=== PATIENT | female | born 1990 | race Caucasian/White ===

== ENCOUNTER → 2017-12-27 17:06 | Outpatient (CLI) | payer OTHER, SELFPAY ==
[2017-12-27 18:53] LABS: Chlamydia Trachomatis by PCR Negative (Negative); Neisserai gonorrhoeae by PCR Negative (Negative); Probe Check PASS; Sample Adequacy Control PASS; Specimen Processing Control PASS
== END ==
PROVIDERS: Family Provider Family Medicine; PCP Family Medicine; Visit Provider Obstetrics & Gynecology
DX: Z34.80 Encounter for supervision of other normal pregnancy, unspecified trimester (principal)
CPT/HCPCS: 87086; 87491; 87591

== ENCOUNTER → 2018-01-07 09:27 | Outpatient (CLI) | payer OTHER, SELFPAY ==
[2018-01-07 10:26] LABS: Absolute Lymphocyte Count 3.05 X10^3/ul (0.83-4.51); Absolute Neutrophil Count 6.3 X10^3/uL (2.0-7.7); Basophil# 0.03 X10^3/uL; Basophil% 0.3 % (0-1); Eosinophil# 0.23 X10^3/uL; Eosinophils% 2.3 % (0-5); Hematocrit 40.9 % (37-47); Hemoglobin 13.5 g/dl (12.0-15.0); Lymphocyte # 3.05 X10^3/ul (4.0); Mean Corpuscular Hgb 28.5 pg (27.0-32.0); Mean Corpuscular Volume 86.3 fL (81-99); Mean Platelet Vol. 10.1 fl (6.2-12.0); Monocyte# 0.48 X10^3/uL; Monocyte% 4.7 % (0-10); Neutrophil # 6.33 X10^3/uL (2.7-7.7); Neutrophil % 62.4 % (47-70); Platelet Count 319 K/mm3 (150-450); RBC Distribution Width CV 13.3 % (11.6-14.6); RBC Distribution Width SD 41.8 fl (35.1-43.9); Red Blood Count 4.74 M/mm3 (4.2-5.4); White Blood Count 10.2 K/mm3 (4.4-11.0)
[2018-01-07 10:27] LABS: POSITIVE COUNT NO; POSITIVE DIFFERENTIAL NO; POSITIVE MORPHOLOGY NO
[2018-01-07 10:51] LABS: Glucose Challenge Gest 1H 50g 88 mg/dL (70-140)
[2018-01-08 09:38] LABS: HIV - WCH Non-Reactive (Nonreactive); Rubella IgG 35.9 IU/mL
[2018-01-08 14:35] LABS: HEPATITIS B SURFACE AG Negative (Negative)
[2018-01-10 03:14] LABS: Rapid Plasmin Reagin (RPR) NONREACTIVE (NONREACTIVE)
== END ==
PROVIDERS: Family Provider Family Medicine; PCP Family Medicine; Visit Provider Obstetrics & Gynecology
DX: Z34.80 Encounter for supervision of other normal pregnancy, unspecified trimester (principal)
CPT/HCPCS: 82950; 85025; 86592; 86703; 86762; 86850; 86900; 87340

== ENCOUNTER → 2018-01-27 17:35 | Outpatient (CLI) | payer OTHER, SELFPAY ==
[2018-01-27 18:03] LABS: Protein, Urine (Random) < 6.0 mg/dL (<11.9)
== END ==
PROVIDERS: Family Provider Family Medicine; Visit Provider Obstetrics & Gynecology
DX: R80.9 Proteinuria, unspecified (principal)
CPT/HCPCS: 82570; 84156

== ENCOUNTER → 2018-03-18 08:00 | Outpatient (CLI) | payer OTHER, SELFPAY ==
--- NOTE | 2018-03-18 08:00 | DT_ITS ---
This patient was seen during an EMR downtime March 17, 2018 - March 24, 2018. This patient may have a combination of paper and electronic documentation or all paper documentation. All documentation is viewable within the e-chart portion of [facility] for each patient visit.
--- NOTE | 2018-03-18 08:30 | US_ITS ---
STUDY: SECOND AND THIRD TRIMESTER OBSTETRICAL ULTRASOUND REASON FOR EXAM: Female, 28 years old. Anatomy. LMP: November 02, 2017. TECHNIQUE: Transabdominal PRIOR ULTRASOUND: None. FINDINGS: There is a single intrauterine fetus. The fetus is in a breech presentation. There is demonstrated cardiac activity with a heart rate of 158 bpm. There is a normal amniotic fluid volume. The largest amniotic fluid pocket measures 4.9 cm. The placenta is anterior in location and is not low lying. There are Grade 1 placental changes. There is a 2 x 1.1 cm placental jack. The cervix measures 6.38 cm in length. The adnexal regions are not visualized. BIOMETRY: BPD: 4.45 cm: 19 weeks, 4 days HC: 16.67 cm: 19 weeks, 3 days AC: 13.9 cm: 19 weeks, 3 days FL: 3 cm: 19 weeks, 2 days CI: FL/BPD: 67 FL/HC: FL/AC: 22 HC/AC: 1.20 age by current US: 19 weeks, 3 days. LISE by current US: August 09, 2018. Estimated weight: 285 grams, +/- 42 grams, 38 %. Age by LMP: 19 weeks, 3 days. LISE by LMP: August 09, 2018. ANATOMY: Gender: Female Cranium: Normal lateral ventricles. Normal choroid plexus. Normal cerebellum. Normal cisterna magna. Normal face, nose and lips. Chest: Normal 4-chamber heart. Abdomen/Pelvis: Normal diaphragm. Normal stomach. Normal abdominal wall. Normal cord insertion. Normal 3 vessel cord. Normal kidneys. Normal bladder. Spine: Normal cervical spine. Normal thoracic spine. Normal lumbar spine. Normal sacrum. Extremities: Normal bilateral upper extremities. Normal bilateral lower extremities. US/OB Anatomy Scan IMPRESSION: 1. Live single intrauterine at 19 weeks, 3 days. LISE is August 09, 2018. 2. EFW of 285 g. 3. Normal amniotic fluid. 4. Anterior grade 1 placenta. 5. Breech presentation. 6. No evidence of anatomic abnormality. Electronically Signed: Abelino Barrios DO at 15:39 EDT Tel [phone], Service support ,
== END ==
PROVIDERS: Family Provider Family Medicine; PCP Family Medicine; Visit Provider Obstetrics & Gynecology
DX: Z34.91 Encounter for supervision of normal pregnancy, unspecified, first trimester (principal); Z3A.12 12 weeks gestation of pregnancy
CPT/HCPCS: 76805

== ENCOUNTER → 2018-04-10 13:38 | Outpatient (CLI) | payer OTHER, SELFPAY ==
[2018-04-10 14:08] LABS: Protein, Urine (Random) < 6.0 mg/dL (<11.9)
== END ==
PROVIDERS: Family Provider Family Medicine; PCP Family Medicine; Visit Provider Nurse Practitioner Women's Health
DX: O16.2 Unspecified maternal hypertension, second trimester (principal); R10.9 Unspecified abdominal pain; Z3A.00 Weeks of gestation of pregnancy not specified
CPT/HCPCS: 82570; 84156; 87086

== ENCOUNTER → 2018-05-13 10:09 | Outpatient (CLI) | payer OTHER, SELFPAY ==
[2018-05-13 11:24] LABS: Absolute Lymphocyte Count 2.15 X10^3/ul (0.83-4.51); Absolute Neutrophil Count 8.8 X10^3/uL (2.0-7.7); Basophil# 0.03 X10^3/uL; Basophil% 0.3 % (0-1); Eosinophil# 0.23 X10^3/uL; Eosinophils% 1.9 % (0-5); Hematocrit 35.9 % (37-47); Hemoglobin 11.8 g/dl (12.0-15.0); Lymphocyte # 2.15 X10^3/ul (4.0); Lymphocyte % 18.1 % (19-41); Mean Corp Hgb Conc 32.9 g/gl (32-36); Mean Corpuscular Hgb 28.7 pg (27.0-32.0); Mean Corpuscular Volume 87.3 fL (81-99); Mean Platelet Vol. 10.4 fl (6.2-12.0); Monocyte# 0.63 X10^3/uL; Monocyte% 5.3 % (0-10); Neutrophil # 8.76 X10^3/uL (2.7-7.7); Platelet Count 299 K/mm3 (150-450); RBC Distribution Width CV 13.5 % (11.6-14.6); Red Blood Count 4.11 M/mm3 (4.2-5.4); White Blood Count 11.9 K/mm3 (4.4-11.0)
[2018-05-13 11:26] LABS: POSITIVE COUNT NO; POSITIVE DIFFERENTIAL NO; POSITIVE MORPHOLOGY NO
[2018-05-13 11:51] LABS: Glucose Challenge Gest 1H 50g 121 mg/dL (70-140)
== END ==
PROVIDERS: Family Provider Family Medicine; PCP Family Medicine; Visit Provider Obstetrics & Gynecology
DX: Z34.90 Encounter for supervision of normal pregnancy, unspecified, unspecified trimester (principal)
CPT/HCPCS: 36415; 82950; 85025

== ENCOUNTER → 2018-06-13 13:28 | Outpatient (CLI) | payer OTHER, SELFPAY | PROVIDERS: Family Provider Family Medicine; PCP Family Medicine; Visit Provider Obstetrics & Gynecology | DX: Z34.90 Encounter for supervision of normal pregnancy, unspecified, unspecified trimester (principal) | CPT/HCPCS: 76816 ==

== ENCOUNTER → 2018-07-07 10:29 | Outpatient (CLI) | payer OTHER, SELFPAY ==
[2018-07-07 12:33] LABS: Absolute Neutrophil Count 7.9 X10^3/uL (2.0-7.7); Basophil# 0.02 X10^3/uL; Basophil% 0.2 % (0-1); Eosinophil# 0.27 X10^3/uL; Eosinophils% 2.4 % (0-5); Hematocrit 33.3 % (37-47); Hemoglobin 10.9 g/dl (12.0-15.0); Lymphocyte % 21.8 % (19-41); Mean Corp Hgb Conc 32.7 g/gl (32-36); Mean Corpuscular Hgb 28.2 pg (27.0-32.0); Mean Platelet Vol. 10.3 fl (6.2-12.0); Monocyte# 0.71 X10^3/uL; Monocyte% 6.2 % (0-10); Neutrophil # 7.93 X10^3/uL (2.7-7.7); Platelet Count 281 K/mm3 (150-450); RBC Distribution Width CV 13.5 % (11.6-14.6); RBC Distribution Width SD 42.5 fl (35.1-43.9); Red Blood Count 3.87 M/mm3 (4.2-5.4); White Blood Count 11.5 K/mm3 (4.4-11.0)
[2018-07-07 12:35] LABS: POSITIVE COUNT NO; POSITIVE DIFFERENTIAL NO; POSITIVE MORPHOLOGY NO
[2018-07-07 12:48] LABS: ALB/GLOB Ratio 0.7 RATIO (0.9-2.4); AST(SGOT) 18 U/L (15-37); Alanine Aminotransfer ALT/SGPT 24 U/L (13-56); Albumin, Serum 2.9 g/dL (3.2-5.0); Alkaline Phosphatase 78 U/L (45-117); BUN 7 mg/dL (7-18); BUN/Creat Ratio 12.6 RATIO (10-20); Calcium,Total 9.1 mg/dL (8.5-10.1); Creatinine, Serum 0.56 mg/dL (0.55-1.02); EST Glomerular Filtration Rate 138 mL/min (>60); Est Glom Filt Rate - Afr Amer 167 mL/min (>60); Globulin 4.1 g/dL (2.2-4.2); Glucose 86 mg/dL (74-106); Sodium Level 141 mmol/L (136-145)
[2018-07-07 12:49] LABS: Anion Gap 9 (5-15); Chloride 107 mmol/L (98-107)
[2018-07-07 13:33] LABS: Creatinine, Urine (random) < 13.00 mg/dL (NO RANGE EST.)
== END ==
PROVIDERS: Family Provider Family Medicine; PCP Family Medicine; Visit Provider Obstetrics & Gynecology
DX: O16.3 Unspecified maternal hypertension, third trimester (principal); Z3A.00 Weeks of gestation of pregnancy not specified; O16.9 Unspecified maternal hypertension, unspecified trimester
CPT/HCPCS: 36415; 80053; 82570; 84156; 85025

== ENCOUNTER → 2018-07-11 08:37 | Outpatient (CLI) | payer OTHER, SELFPAY ==
--- NOTE | 2018-07-11 08:38 | US_ITS ---
STUDY: SECOND AND THIRD TRIMESTER OBSTETRICAL ULTRASOUND - LIMITED REASON FOR EXAM: Female, 28 years old. Routine survey. LMP: November 02, 2017. PRIOR ULTRASOUND: Comparison is made with prior study dated June 13, 2018 and March 18, 2018. TECHNIQUE: Transabdominal ultrasound evaluation was performed. FINDINGS: There is a single intrauterine fetus. The fetus is in a cephalic presentation. There is demonstrated cardiac activity with a heart rate of 140 bpm. There is a normal amniotic fluid volume. The largest amniotic fluid pocket measures 5.1 cm x 5.2 cm. The amniotic fluid index (HARSHAD) is 9.4 cm. The placenta is anterior in location and is not low lying. There are Grade 2 placental changes. The cervix measures 4.1 cm in length. BIOMETRY: BPD: 9.3 cm: 37 weeks, 5 days HC: 33.1 cm: 37 weeks, 5 days AC: 32.2 cm: 36 weeks, 1 days FL: 7.0 cm: 35 weeks, 6 days Age by LMP: 35 weeks, 6 days. LISE by LMP: August 09, 2018. age by prior US: 36 weeks, 6 days. LISE by prior US: August 02, 2018. age by current US: 36 weeks, 6 days. LISE by current US: August 02, 2018. Estimated weight: 2917 grams, +/- 426 grams, 65 percentile. Gender: Female US/OB Limited With Biometrics IMPRESSION: Single live intrauterine gestation with a mean gestational age of 36 weeks and 6 days. There has been good interval growth. Electronically Signed: Teo Virk MD at 10:01 EDT Tel [phone], Service support ,
== END ==
PROVIDERS: Family Provider Family Medicine; PCP Family Medicine; Referring Provider Obstetrics & Gynecology; Visit Provider Obstetrics & Gynecology
DX: O16.9 Unspecified maternal hypertension, unspecified trimester (principal); Z3A.00 Weeks of gestation of pregnancy not specified
CPT/HCPCS: 76816

== ENCOUNTER → 2018-07-14 13:27 | Outpatient (CLI) | payer OTHER, SELFPAY ==
[2018-07-14 14:32] LABS: Protein, Urine (Random) < 6.0 mg/dL (<11.9); Protein:Creat Ratio 429 mg/g CRE (0-200)
[2018-07-14 15:04] LABS: Absolute Lymphocyte Count 2.49 X10^3/ul (0.83-4.51); Absolute Neutrophil Count 8.8 X10^3/uL (2.0-7.7); Basophil# 0.02 X10^3/uL; Basophil% 0.2 % (0-1); Eosinophil# 0.29 X10^3/uL; Eosinophils% 2.3 % (0-5); Hematocrit 32.1 % (37-47); Hemoglobin 10.7 g/dl (12.0-15.0); Lymphocyte # 2.49 X10^3/ul (4.0); Lymphocyte % 20.1 % (19-41); Mean Corp Hgb Conc 33.3 g/gl (32-36); Mean Corpuscular Hgb 28.6 pg (27.0-32.0); Mean Corpuscular Volume 85.8 fL (81-99); Mean Platelet Vol. 10.5 fl (6.2-12.0); Monocyte# 0.65 X10^3/uL; Monocyte% 5.3 % (0-10); Neutrophil # 8.83 X10^3/uL (2.7-7.7); Neutrophil % 71.3 % (47-70); Platelet Count 321 K/mm3 (150-450); RBC Distribution Width CV 13.3 % (11.6-14.6); RBC Distribution Width SD 40.8 fl (35.1-43.9); Red Blood Count 3.74 M/mm3 (4.2-5.4); White Blood Count 12.4 K/mm3 (4.4-11.0)
[2018-07-14 15:06] LABS: POSITIVE COUNT NO; POSITIVE DIFFERENTIAL NO; POSITIVE MORPHOLOGY NO
[2018-07-14 15:30] LABS: Group B Strep DNA By PCR POSITIVE (Negative); Probe Check PASS
[2018-07-14 15:39] LABS: ALB/GLOB Ratio 0.7 RATIO (0.9-2.4); AST(SGOT) 12 U/L (15-37); Alanine Aminotransfer ALT/SGPT 20 U/L (13-56); Albumin, Serum 2.7 g/dL (3.2-5.0); Alkaline Phosphatase 79 U/L (45-117); Anion Gap 11 (5-15); BUN 7 mg/dL (7-18); BUN/Creat Ratio 10.1 RATIO (10-20); Calcium,Total 8.7 mg/dL (8.5-10.1); Chloride 108 mmol/L (98-107); EST Glomerular Filtration Rate 107 mL/min (>60); Est Glom Filt Rate - Afr Amer 129 mL/min (>60); Globulin 3.9 g/dL (2.2-4.2); Glucose 116 mg/dL (74-106); LDH 148 U/L (84-246); Potassium 3.2 mmol/L (3.5-5.1); Protein, Total 6.6 g/dL (6.4-8.2); Sodium Level 140 mmol/L (136-145); Uric Acid 4.3 mg/dL (2.6-6.0)
[2018-07-14 21:56] LABS: Xtra Tube EP Lab EXTRA TUBE
== END ==
LOC: LABSPEC 13:29 → PAVLAB 13:35
PROVIDERS: Family Provider Family Medicine; PCP Family Medicine; Referring Provider Obstetrics & Gynecology; Visit Provider Obstetrics & Gynecology
DX: Z34.90 Encounter for supervision of normal pregnancy, unspecified, unspecified trimester (principal); O16.3 Unspecified maternal hypertension, third trimester; Z3A.00 Weeks of gestation of pregnancy not specified
CPT/HCPCS: 36415; 80053; 82570; 83615; 84156; 84550; 85025; 87653

== ENCOUNTER 2018-07-19 18:30 | Outpatient (CLI) | payer OTHER, SELFPAY ==
[2018-07-19 19:39] VITALS: BMI 45.1
--- NOTE | 2018-07-20 16:12 | OB.TRI.NOTE ---
- Problem List (1) Preeclampsia Status: Acute (2) Elevated blood pressure affecting in third trimester, antepartum Status: Acute Comment: check home bps, labs ordered. if remains elevated recommend weekly nst/urine prtn cr ratios and deliver at 37 (3) Status: Acute Qualifiers: (4) Normal Status: Acute Qualifiers: Comment: PRR LISE 08/09/18 girl Louie Webster Calvin (5) BMI greater than 40 Status: Acute Comment: 1 tm gct, weekly nsts and growth us from 32 weeks on History of Present Illness Date of Service: 07/19/18 Was patient seen by the physician?: No Reason For Visit: NST Date of Service: 07/19/18 History of Present Illness: nst Allergies metronidazole [From Flagyl] Allergy (Verified 07/20/18 08:07) Hives - Pertinent Past Medical History Medical History: Past Medical History (Last Reviewed 07/07/18 @ 09:47 by Karlee Hooks) History of wisdom tooth extraction, class II edentulism Surgical History: Past Surgical History (Last Reviewed 07/07/18 @ 09:47 by Karlee Hooks) closed fixation and pinning of elbow NST - FHR Rate Baby A Baseline: 140 Variability:: Moderate Accelerations:: 15 x 15 Decelerations:: None NST Reactive:: Yes FHR Category:: Category I Uterine Activity:: no regular Impression/Plan reactive nst plan iol tyomorrow
== END 2018-07-19 20:15 | disposition home or self-care (01) ==
LOC: WPOUT 18:42 → WP 18:46
PROVIDERS: Family Provider Family Medicine; PCP Family Medicine; Visit Provider Obstetrics & Gynecology
DX: O16.3 Unspecified maternal hypertension, third trimester (principal); Z3A.00 Weeks of gestation of pregnancy not specified
CPT/HCPCS: 59025; 59050; 99218; G0378

== ENCOUNTER 2018-07-20 06:30 | Inpatient (IN) | payer OTHER, SELFPAY ==
[2018-07-20] MEDS: Lactated Ringers 1,000 ML 50 ML IV ×3 (07:30→21:14)
[2018-07-20 07:53] LABS: Hematocrit 32.3 % (37-47); Hemoglobin 10.8 g/dl (12.0-15.0); Mean Corp Hgb Conc 33.4 g/gl (32-36); Mean Corpuscular Hgb 28.7 pg (27.0-32.0); Mean Corpuscular Volume 85.9 fL (81-99); Mean Platelet Vol. 10.1 fl (6.2-12.0); Platelet Count 294 K/mm3 (150-450); RBC Distribution Width CV 13.7 % (11.6-14.6); RBC Distribution Width SD 42.7 fl (35.1-43.9); Red Blood Count 3.76 M/mm3 (4.2-5.4); White Blood Count 12.1 K/mm3 (4.4-11.0)
[2018-07-20 07:56] LABS: Scan Indicated on CBC? Y/N NO
[2018-07-20 08:04] VITALS: BMI 44.7
[2018-07-20] MEDS: 0.9% Normal Saline 100 ML IV.SOLN. INTRA-UTER (08:24)
[2018-07-20] MEDS: Oxytocin 30 units/NS 500 ml 30 UNITS/500 ML IV.SOLN IV (08:34)
--- NOTE | 2018-07-20 08:38 | HP.PCM_ITS ---
- Problem List (1) Preeclampsia Status: Acute (2) Status: Acute Qualifiers: (3) Normal Status: Acute Qualifiers: Comment: PRR LISE 08/09/18 girl Louie Webster Calvin (4) BMI greater than 40 Status: Acute Comment: 1 tm gct, weekly nsts and growth us from 32 weeks on History Date of Admission: 07/20/18 Final LISE: 08/09/18 Gestational age: 37 Weeks and 1 Days History of this : This is a 28 year-old, at 37 weeks gestational age presents for IOL preeclampsia. she has had a complicated by elevated bps and denies any almeida bv n v or ruq pain. Medical History: Medical History (Last Reviewed 07/07/18 @ 09:47 by Karlee Hooks) History of wisdom tooth extraction, class II edentulism K08.492 Surgical History: Surgical History (Last Reviewed 07/07/18 @ 09:47 by Karlee Hooks) closed fixation and pinning of elbow Allergies metronidazole [From Flagyl] Allergy (Verified 07/20/18 08:07) Hives Home Medications: Home Medications vitamin,calcium,kcadhfdf-hwgr-fhozg acid tablet 1 tab PO QDAY 12/27/17 promethazine 12.5 mg tablet 12.5 mg PO Q6H PRN #30 tab 04/21/18 Smoking Status: Never smoker Alcohol: None Number of Fetus(es): 1 Heart Tracin-140 mod variability reactive no decels cat i TOCO Analysis: irregular History Past Pregnancies: Past Pregnancies previous term uncomplicatred 9lbs 7 ounces Delivery Date Name GA/Weeks Outcome Route Weight Infant Gender Labor Length Anesthesia Delivery Location Provider FOB Labs: Mom[facility] Labs & Results 07/20/18 07/20/18 07:30 07:30 WBC 12.1 H RBC 3.76 L Hgb 10.8 L Hct 32.3 L MCV 85.9 MCH 28.7 MCHC 33.4 RDW 13.7 RDW Differential 42.7 Plt Count 294 MPV 10.1 Blood Type Pending Antibody Screen Pending Course Did the patient receive Yes care? Labs Blood Type: O RH: POSITIVE RPR/VDRL/Syphilis Nonreactive Rubella status Immune HbSAg Negative Date Done: 01/07/18 Chlamydia Negative Gonorrhea Negative HIV/AIDS Non-Reactive Group B Strep: Positive Social History Hx Smoking No Smoking Status Never smoker How long have you used n/a substances (years)? What date/time did you last n/a use any of the above? Have you had any previous n/a inpatient or outpatient treatment Expected Delivery Method: Spontaneous Vaginal Review of Systems Constitutional: Denies: Fever, Malaise Eyes: Denies: Blurred vision, Vision Change HEENT: Denies: Head Aches, Visual Changes Cardiovascular: Denies: Chest Pain, Palpitations Respiratory: Denies: Cough, Shortness of Breath, Wheezing Gastrointestinal: Denies: Abdominal Pain, Diarrhea, Nausea, Vomiting Genitourinary: Denies: Dysuria, Hematuria Musculoskeletal: Denies: Joint Pain, Muscle pain Skin: Denies: Lesions, Rash Neurological: Denies: Blurred vision, Focal weakness, Headaches Psychiatric: Denies: Anxiety, Depression Endocrine: Denies: Heat/ Cold Intolerance Hematologic/ Lymphatic: Denies: Easy Bruising, Easy Bleeding Physical Exam General: Alert, Cooperative, No apparent distress HEENT: Atraumatic, Normocephalic. Negative for: Thyromegaly, Lymphadenopathy Cardiovascular: Regular rate Lungs: Normal air movement Abdomen: Soft, Non Tender, Gravid Neurological: Deep Tendon Reflexes 2+/4 and Symmetrical, Neuro grossly intact. 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 Negative for: Vulvar lesions Estimated gestational size: Appropriate for gestational size Presentation: Cephalic Assessment/Plan All Active Problems (Last Reviewed 07/07/18 @ 09:47 by Karlee Hooks) Preeclampsia (Acute) Elevated blood pressure affecting in third trimester, antepartum (Acute) (Acute) Normal (Acute) BMI greater than 40 (Acute) This is a 28 year-old, , at 37 weeks gestational age presents iol preeclampsia iol preeclampsia fb pitocin gbs pos antibiotics epi prn
[2018-07-20 10:28] LABS: International Normalized Ratio 0.9; Prothrombin Time (Protime)PT. 11.9 SECONDS (11.7-14.9)
[2018-07-20 10:37] LABS: ALB/GLOB Ratio 0.7 RATIO (0.9-2.4); AST(SGOT) 15 U/L (15-37); Alanine Aminotransfer ALT/SGPT 19 U/L (13-56); Albumin, Serum 2.8 g/dL (3.2-5.0); Alkaline Phosphatase 81 U/L (45-117); Anion Gap 9 (5-15); BUN 7 mg/dL (7-18); BUN/Creat Ratio 13.2 RATIO (10-20); Calcium,Total 8.7 mg/dL (8.5-10.1); Chloride 108 mmol/L (98-107); Creatinine, Serum 0.53 mg/dL (0.55-1.02); EST Glomerular Filtration Rate 145 mL/min (>60); Est Glom Filt Rate - Afr Amer 176 mL/min (>60); Estimated Creatinine Clearance 159.42 ml/min; Globulin 4.1 g/dL (2.2-4.2); Glucose 73 mg/dL (74-106); Potassium 4.1 mmol/L (3.5-5.1); Protein, Total 6.9 g/dL (6.4-8.2); Sodium Level 140 mmol/L (136-145)
--- NOTE | 2018-07-20 15:51 | PCM.PN.BLA ---
Progress Note arom clear fluid 3-4 cm, s/p oquendo bulb. cat I tracing reassuring status pit at 16. plan Epi PRN. gbs prophylaxis being given.
[2018-07-20] MEDS: fentaNYL-bupivacaine (epidural) 100 ML BAG EPIDURAL (18:07)
[2018-07-20] MEDS: Ondansetron 4 MG/2 ML Vial IV (18:36)
[2018-07-20] MEDS: Oxytocin 30 units/NS 500 ml 30 UNITS/500 ML IV.SOLN 167 UNITS IV (21:42)
--- NOTE | 2018-07-20 21:48 | PCM.OB.VAG ---
- Problem List (1) Preeclampsia Status: Acute (2) Status: Acute Qualifiers: (3) Normal Status: Acute Qualifiers: Comment: PRR LISE 08/09/18 girl Louie Webster Calvin (4) BMI greater than 40 Status: Acute Comment: 1 tm gct, weekly nsts and growth us from 32 weeks on Vaginal Delivery Maternal Presentation: Medically Indicated Induction 28-year-old at 37 weeks 1 day presents for induction of labor secondary to preeclampsia Method of Induction: Pitocin, Rodriguez Bulb Medical Reason for Induction: Preeclampsia, eclampsia Amniotic Membrane Rupture Type: Artificial Amniotic Fluid Description: Clear Final LSIE: 08/09/18 Gestational age: 37 Weeks and 1 Days Date of Procedure: 07/20/18 Pre-Operative Diagnosis: Induction of labor Post-Operative Diagnosis: Same Surgery/ Procedure Performed: Spontaneous Vaginal Delivery Type of Anesthesia: Epidural Description of Procedure: Patient began pushing and delivered the head in the ALEXUS presentation. The head was delivered atraumatically a loose nuchal cord x1 was identified and the was delivered through. The anterior and posterior shoulders delivered without complication followed by the rest of the and the was placed on the maternal abdomen. Delayed cord clamping was employed for approximately 60 seconds. Cord was clamped and cut and gentle traction was applied to the cord and the placenta delivered spontaneously immediately following it was noted to be intact with three-vessel cord. The perineum and vagina were inspected and noted to have no laceration. EBL was 300 cc. Patient and tolerated delivery well. Presentation: ALEXUS Placental Delivery Description: Spontaneous Placenta Disposition: [facility] Cord Vessel Description: 3 Vessels Cord Entanglement: Around neck x 1, loose Drain: Rodriguez to straight drain Estimated Blood Loss: 300 Infant A gender: Female Episiotomy Description: None Laceration: None Medications given after delivery: IV Pitocin Complications: None
[2018-07-20] MEDS: Oxytocin 30 units/NS 500 ml 30 UNITS/500 ML IV.SOLN 334 UNITS IV (22:14)
[2018-07-21] VITALS: BP 120/64; PULSE 101; RESP 18; TEMP 37.1; O2SAT 100
[2018-07-21 04:00] VITALS: BP 124/68; PULSE 77; RESP 16; TEMP 36.9; O2SAT 97
[2018-07-21 08:20] VITALS: BP 129/79; PULSE 69; RESP 16; TEMP 36.6; O2SAT 95
--- NOTE | 2018-07-21 11:00 | PCM.PN.OB ---
Patient Problems: Active and Suspected Problems (Last Reviewed 07/07/18 @ 09:47 by Karlee Hooks) Preeclampsia (Acute) Subjective: NO CP, SOB. Doing well - Physical Exam General: Alert, Oriented x3 Abdomen: Soft, Non Tender, - - FF below U Vital Signs Temp Pulse Resp BP Pulse Ox 97.8 F 69 16 129/79 H 95 07/21/18 08:20 07/21/18 08:20 07/21/18 08:20 07/21/18 08:20 07/21/18 08:20 Oxygen Delivery Method Room Air Weight: 294 lb 6.4 oz Body Mass Index (BMI) 44.7 Intake and Output for Last 24 Hours 07/19/18 07/20/18 07/21/18 23:59 23:59 23:59 Intake Total 2324 / 2324 Output Total 1650 / 1650 1200 / 1200 Balance 674 / 674 -1200 / -1200 Medical Necessity - Tobacco Use Smoking Status: Never smoker Assessment/Plan All Active Problems (Last Reviewed 07/07/18 @ 09:47 by Karlee Hooks) Preeclampsia (Acute) Elevated blood pressure affecting in third trimester, antepartum (Acute) (Acute) Normal (Acute) BMI greater than 40 (Acute) PPD#1: Routine care. Pain controlled.
[2018-07-21 11:45] VITALS: BP 125/74; PULSE 81; RESP 18; TEMP 36.3; O2SAT 96
[2018-07-21] MEDS: Naproxen 250 MG Tablet PO ×2 (13:07→21:43)
[2018-07-21 16:12] VITALS: BP 132/79; PULSE 76; RESP 18; TEMP 36.4; O2SAT 96
[2018-07-21 20:15] VITALS: BP 148/85; PULSE 78; RESP 18; TEMP 36.5
[2018-07-22 02:00] VITALS: BP 139/86; PULSE 73; RESP 18; TEMP 37.1
--- NOTE | 2018-07-22 08:10 | PN.OBGYN_ITS ---
Patient Problems: Active and Suspected Problems (Last Reviewed 07/07/18 @ 09:47 by Karlee Hooks) Preeclampsia (Acute) Subjective: Doing well. Pain controlled. Plans home today - Physical Exam General: Alert, Oriented x3 Abdomen: Soft, Non Tender, - - FF below U Vital Signs Temp Pulse Resp BP Pulse Ox 98.8 F 73 18 139/86 H 96 07/22/18 02:00 07/22/18 02:00 07/22/18 02:00 07/22/18 02:00 07/21/18 16:12 Oxygen Delivery Method Room Air Weight: 294 lb 6.4 oz Body Mass Index (BMI) 44.7 Intake and Output for Last 24 Hours 07/20/18 07/21/18 07/22/18 23:59 23:59 23:59 Intake Total 2324 / 2324 Output Total 1650 / 1650 1200 / 1200 Balance 674 / 674 -1200 / -1200 Medical Necessity - Tobacco Use Smoking Status: Never smoker Assessment/Plan All Active Problems (Last Reviewed 07/07/18 @ 09:47 by Karlee Hooks) Preeclampsia (Acute) Elevated blood pressure affecting in third trimester, antepartum (A cute) (Acute) Normal (Acute) BMI greater than 40 (Acute) PPD #2: Routine care. OTC pain relief. DC home today. Plans progesterone only OCP for contraception.
--- NOTE | 2018-07-22 08:14 | DCINST_ITS ---
Additional Instructions: If you experience any of the following, contact your healthcare provider. * Bleeding that soaks a pad every hour for 2 hours * Fever 100.4 or higher * Unrelieved incision or abdominal pain * Swelling, redness, discharge or bleeding from your incision or episiotomy site * Your incision begins to separate * Problems urinating (including inability to urinate or burning while urinating). * Visual changes * Severe headache * Flu-like symptoms * Pain or redness in one of both of your breasts * Pain, warmth, tenderness or swelling in your legs, especially the calf area * Frequent nausea and vomiting * Symptoms of depression or anxiety If you experience any of the following, call 911 or go to the nearest Emergency Room. * Chest pain * Problems breathing * Seizure activity * Partial or complete paralysis of a body part, slurred speech, weakness or drooping of the face, or a sudden inability to walk or hold your balance Allergies/Adverse Reactions: Allergies metronidazole [From Flagyl] Allergy (Verified 07/20/18 08:07) Hives Medications to take at Discharge vitamin,calcium,palpxcgd-cgpp-eygyh acid tablet 1 tab PO QDAY 12/27/17 promethazine 12.5 mg tablet 12.5 mg PO Q6H PRN #30 tab 04/21/18 Norethindrone [Venice] 0.35 mg PO DAILY #28 tablet 07/22/18 The following prescriptions were given: Norethindrone [Venice] 0.35 mg PO DAILY #28 tablet Primary Care Physician: Jb Mcarthur III, MD [Primary Care Provider] - Test Results: Test results from this visit will be discussed in further detail at your follow- up appointment, if applicable.
--- NOTE | 2018-07-22 08:14 | PCM.DCVAG ---
Additional Instructions: If you experience any of the following, contact your healthcare provider. Bleeding that soaks a pad every hour for 2 hours Fever 100.4 or higher Unrelieved incision or abdominal pain Swelling, redness, discharge or bleeding from your incision or episiotomy site Your incision begins to separate Problems urinating (including inability to urinate or burning while urinating). Visual changes Severe headache Flu-like symptoms Pain or redness in one of both of your breasts Pain, warmth, tenderness or swelling in your legs, especially the calf area Frequent nausea and vomiting Symptoms of depression or anxiety If you experience any of the following, call 911 or go to the nearest Emergency Room. Chest pain Problems breathing Seizure activity Partial or complete paralysis of a body part, slurred speech, weakness or drooping of the face, or a sudden inability to walk or hold your balance Allergies/Adverse Reactions: Allergies metronidazole [From Flagyl] Allergy (Verified 07/20/18 08:07) Hives Medications to take at Discharge vitamin,calcium,pvvdfeem-fjqy-cykyd acid tablet 1 tab PO QDAY 12/27/17 promethazine 12.5 mg tablet 12.5 mg PO Q6H PRN #30 tab 04/21/18 Norethindrone [Venice] 0.35 mg PO DAILY #28 tablet 07/22/18 The following prescriptions were given: Norethindrone [Venice] 0.35 mg PO DAILY #28 tablet Primary Care Physician: Jb Mcarthur III, MD [Primary Care Provider] - Test Results: Test results from this visit will be discussed in further detail at your follow-up appointment, if applicable.
[2018-07-22] MEDS: Senna/Docusate Sodium 1 Tablet PO (09:40)
[2018-07-22] MEDS: Naproxen 250 MG Tablet PO (09:41)
[2018-07-22 09:47] VITALS: BP 152/84; PULSE 67; RESP 16; TEMP 36.4
== END 2018-07-22 11:10 | disposition home or self-care (01) | DRG 807 ==
PROVIDERS: Admitting Provider Obstetrics & Gynecology; Family Provider Family Medicine; PCP Family Medicine; Visit Provider Obstetrics & Gynecology
DX: O14.94 Unspecified pre-eclampsia, complicating childbirth (principal); Z37.0 Single live birth; O69.81X0 Labor and delivery complicated by cord around neck, without compression, not applicable or unspecified; Z3A.37 37 weeks gestation of pregnancy; O99.820 Streptococcus B carrier state complicating pregnancy
CPT/HCPCS: 59025; 59050; 80053; 85027; 85610; 85730; 86850; 86900; 99218; J7120; G0378; J2405

== ENCOUNTER → 2019-08-10 09:47 | Outpatient (CLI) | payer OTHER, SELFPAY ==
[2019-08-10 09:39] VITALS: BMI 42.3
[2019-08-10 10:25] LABS: Absolute Lymphocyte Count 2.43 X10^3/uL (0.83-4.51); Absolute Neutrophil Count 6.7 X10^3/uL (2.0-7.7); Basophil# 0.05 X10^3/uL; Basophil% 0.5 % (0-1); Eosinophil# 0.17 X10^3/uL; Eosinophils% 1.7 % (0-5); Hematocrit 40.8 % (37-47); Hemoglobin 13.8 g/dL (12.0-15.0); Lymphocyte # 2.43 X10^3/ul (4.0); Lymphocyte % 24.6 % (19-41); Mean Corp Hgb Conc 33.8 g/dL (32-36); Mean Corpuscular Volume 85.7 fL (81-99); Mean Platelet Vol. 10.4 fl (6.2-12.0); Monocyte# 0.54 X10^3/uL; Monocyte% 5.5 % (0-10); NRBC Flagged by Analyzer 0 % (0-5); Neutrophil # 6.65 X10^3/uL (2.7-7.7); Neutrophil % 67.2 % (47-70); Platelet Count 311 K/mm3 (150-450); RBC Distribution Width CV 12.5 % (11.6-14.6); RBC Distribution Width SD 39.5 fl (35.1-43.9); Red Blood Count 4.76 M/mm3 (4.2-5.4); White Blood Count 9.9 K/mm3 (4.4-11.0)
[2019-08-10 10:46] LABS: ALB/GLOB Ratio 0.9 RATIO (0.9-2.4); AST(SGOT) 15 U/L (15-37); Alanine Aminotransfer ALT/SGPT 27 U/L (13-56); Albumin, Serum 3.4 g/dL (3.2-5.0); Alkaline Phosphatase 56 U/L (45-117); Anion Gap 8 (5-15); BUN 9 mg/dL (7-18); BUN/Creat Ratio 14.1 RATIO (10-20); Calcium,Total 8.8 mg/dL (8.5-10.1); Chloride 108 mmol/L (98-107); Creatinine, Serum 0.64 mg/dL (0.55-1.02); EST Glomerular Filtration Rate 117 mL/min (>60); Est Glom Filt Rate - Afr Amer 141 mL/min (>60); Globulin 3.9 g/dL (2.2-4.2); Glucose 124 mg/dL (74-106); Glucose Challenge Gest 1H 50g 124 mg/dL (70-140); Potassium 3.6 mmol/L (3.5-5.1); Protein, Total 7.3 g/dL (6.4-8.2); Sodium Level 137 mmol/L (136-145)
[2019-08-10 11:37] LABS: HIV - WCH Non-Reactive (Nonreactive); Hepatitis B Surface Antigen Non-Reactive (Nonreactive); Rubella IgG 36.3 IU/mL
[2019-08-10 14:12] LABS: Protein, Urine (Random) 8.9 mg/dL (<11.9); Protein:Creat Ratio 112 mg/g CRE (0-200)
[2019-08-10 16:33] LABS: Chlamydia Trachomatis by PCR Negative (Negative); Neisserai gonorrhoeae by PCR Negative (Negative); Probe Check PASS; Sample Adequacy Control PASS; Specimen Processing Control PASS
[2019-08-13 03:07] LABS: Rapid Plasmin Reagin (RPR) NONREACTIVE (NONREACTIVE)
== END ==
PROVIDERS: Family Provider Family Medicine; PCP Family Medicine; Referring Provider Obstetrics & Gynecology; Visit Provider Obstetrics & Gynecology
DX: Z34.80 Encounter for supervision of other normal pregnancy, unspecified trimester (principal)
CPT/HCPCS: 36415; 80053; 82570; 82950; 84156; 85025; 86592; 86703; 86762; 86850; 86900; 86901; 87077; 87086; 87088; 87186; 87340; 87491; 87591

== ENCOUNTER → 2019-09-07 14:26 | Outpatient (CLI) | payer OTHER, SELFPAY ==
[2019-09-07 09:45] VITALS: BMI 42.3
[2019-09-07 14:59] LABS: Protein:Creat Ratio 89 mg/g CRE (0-200)
== END ==
LOC: LABSPEC 14:27
PROVIDERS: Family Provider Family Medicine; PCP Family Medicine; Visit Provider Obstetrics & Gynecology
DX: O16.3 Unspecified maternal hypertension, third trimester (principal); Z3A.00 Weeks of gestation of pregnancy not specified
CPT/HCPCS: 82570; 84156

== ENCOUNTER → 2019-10-09 13:31 | Outpatient (CLI) | payer OTHER, SELFPAY ==
[2019-10-09 09:01] VITALS: BMI 42.3
== END ==
LOC: LABSPEC 13:33
PROVIDERS: Family Provider Family Medicine; PCP Family Medicine; Referring Provider Obstetrics & Gynecology; Visit Provider Obstetrics & Gynecology
DX: O23.41 Unspecified infection of urinary tract in pregnancy, first trimester (principal)
CPT/HCPCS: 87086; 87088

== ENCOUNTER → 2019-12-25 10:56 | Outpatient (CLI) | payer OTHER, SELFPAY ==
[2019-12-25 10:00] VITALS: BMI 42.3
[2019-12-25 11:18] LABS: Absolute Lymphocyte Count 2.73 X10^3/uL (0.83-4.51); Absolute Neutrophil Count 8.2 X10^3/uL (2.0-7.7); Basophil# 0.04 X10^3/uL; Basophil% 0.3 % (0-1); Eosinophils% 2.5 % (0-5); Hematocrit 32.9 % (37-47); Hemoglobin 10.9 g/dL (12.0-15.0); Lymphocyte # 2.73 X10^3/ul (4.0); Lymphocyte % 22.7 % (19-41); Mean Corp Hgb Conc 33.1 g/dL (32-36); Mean Corpuscular Hgb 28.4 pg (27.0-32.0); Mean Corpuscular Volume 85.7 fL (81-99); NRBC Flagged by Analyzer 0 % (0-5); Neutrophil # 8.24 X10^3/uL (2.7-7.7); Neutrophil % 68.6 % (47-70); Platelet Count 294 K/mm3 (150-450); RBC Distribution Width CV 13.3 % (11.6-14.6); RBC Distribution Width SD 41.2 fl (35.1-43.9); Red Blood Count 3.84 M/mm3 (4.2-5.4)
[2019-12-25 11:23] LABS: Glucose Challenge Gest 1H 50g 138 mg/dL (70-140)
== END ==
PROVIDERS: PCP Family Medicine; Referring Provider Obstetrics & Gynecology; Visit Provider Obstetrics & Gynecology
DX: Z34.93 Encounter for supervision of normal pregnancy, unspecified, third trimester (principal); Z3A.28 28 weeks gestation of pregnancy
CPT/HCPCS: 36415; 82950; 85025

== ENCOUNTER → 2019-12-30 06:48 | Outpatient (CLI) | payer OTHER, SELFPAY ==
[2019-12-25 10:00] VITALS: BMI 42.3
[2019-12-30 07:33] LABS: Glucose GTT-Gestation. Fasting 90 mg/dL (<105)
[2019-12-30 08:31] LABS: Glucose GTT-Gestational 1 Hr 217 mg/dL (<190)
[2019-12-30 10:34] LABS: Glucose GTT-Gestational 2 Hr 64 mg/dL (<165)
[2019-12-30 10:35] LABS: Glucose GTT-Gestational 3 Hr 55 L (<145)
== END ==
LOC: LAB 06:50
PROVIDERS: PCP Family Medicine; Referring Provider Obstetrics & Gynecology; Visit Provider Obstetrics & Gynecology
DX: R73.09 Other abnormal glucose (principal)
CPT/HCPCS: 36415; 82951; 82952

== ENCOUNTER → 2020-01-18 07:41 | Outpatient (CLI) | payer OTHER, SELFPAY ==
[2019-12-25 10:00] VITALS: BMI 42.3
[2020-01-08 13:02] VITALS: BMI 42.3
--- NOTE | 2020-01-18 07:42 | US_ITS ---
STUDY: SECOND AND THIRD TRIMESTER OBSTETRICAL ULTRASOUND REASON FOR EXAM: Female, 29 years old growth LMP: June 08, 2019. TECHNIQUE: Transabdominal. Limited due to patient''s body habitus and positioning. TECHNICAL QUALITY: Limited. PRIOR ULTRASOUND: None. FINDINGS: There is a single intrauterine fetus. The fetus is in an transverse lie with the head on the maternal left side. There is demonstrated cardiac activity with a heart rate of 131 bpm. There is a normal amniotic fluid volume. The largest amniotic fluid pocket measures 7.4 cm. The amniotic fluid index (HARSHAD) is 16.5 cm. The placenta is fundal in location. There are Grade 1 placental changes. The cervix measures 4.6 cm in length. The adnexal regions are not visualized. BIOMETRY: BPD: 8.5 cm: 34 weeks, 1 days HC: 30.9 cm: 34 weeks, 3 days AC: 31 cm: 34 weeks, 6 days FL: 5.8 cm: 30 weeks, 2 days CI: 87% FL/BPD: 68% FL/HC: FL/AC: 19% HC/AC: 1.00 age by current US: 32 weeks, 5 days. LISE by current US: March 09, 2020. Estimated weight: 2220 grams, +/- 329 grams, 81 %. Age by LMP: 32 weeks, 0 days. LISE by LMP: March 14, 2020. US/OB Limited With Biometrics IMPRESSION: Single live intrauterine gestation with mean gestational age of 32 weeks and 5 days. Electronically Signed: Teo Virk, at 8:58 EDT , Service support ,
== END ==
LOC: OPUS 07:42
PROVIDERS: PCP Family Medicine; Referring Provider Obstetrics & Gynecology; Visit Provider Obstetrics & Gynecology
DX: O10.919 Unspecified pre-existing hypertension complicating pregnancy, unspecified trimester (principal); Z3A.00 Weeks of gestation of pregnancy not specified
CPT/HCPCS: 76816

== ENCOUNTER → 2020-01-25 08:46 | Outpatient (CLI) | payer OTHER, SELFPAY ==
[2019-12-25 10:00] VITALS: BMI 42.3
[2020-01-08 13:02] VITALS: BMI 42.3
--- NOTE | 2020-01-25 08:49 | US_ITS ---
STUDY: SECOND AND THIRD TRIMESTER OBSTETRICAL ULTRASOUND - LIMITED REASON FOR EXAM: Female, 29 years old HARSHAD LMP: June 08, 2019. PRIOR ULTRASOUND: Comparison is made with prior examination dated January 18, 2020. TECHNIQUE: Transabdominal TECHNICAL QUALITY: Adequate. FINDINGS: There is a single intrauterine fetus. The fetus is in a cephalic presentation. There is demonstrated cardiac activity with a heart rate of 1:30 bpm. There is a normal amniotic fluid volume. The largest amniotic fluid pocket measures 6.7 cm. The amniotic fluid index (HARSHAD) is 16.9 cm. The placenta is fundal in location. There are Grade 1 placental changes. The cervix measures 4.1 cm in length. Age by LMP: 33 weeks, 0 days. LISE by LMP: March 14, 2020. US/OB Limited (No Biometrics) IMPRESSION: Normal amniotic fluid index. Electronically Signed: Teo Virk, at 11:00 EDT , Service support ,
== END ==
PROVIDERS: PCP Family Medicine; Referring Provider Obstetrics & Gynecology; Visit Provider Obstetrics & Gynecology
DX: O10.919 Unspecified pre-existing hypertension complicating pregnancy, unspecified trimester (principal); Z3A.00 Weeks of gestation of pregnancy not specified
CPT/HCPCS: 76815

== ENCOUNTER → 2020-02-01 08:27 | Outpatient (CLI) | payer OTHER, SELFPAY ==
[2019-12-25 10:00] VITALS: BMI 42.3
[2020-01-25 10:21] VITALS: BMI 42.3
--- NOTE | 2020-02-01 08:28 | US_ITS ---
STUDY: SECOND AND THIRD TRIMESTER OBSTETRICAL ULTRASOUND - LIMITED REASON FOR EXAM: Female, 29 years old HARSHAD LMP: June 08, 2019. PRIOR ULTRASOUND: Comparison is made with prior examination dated January 25, 2020. TECHNIQUE: Transabdominal TECHNICAL QUALITY: Adequate. FINDINGS: There is a single intrauterine fetus. The fetus is in a transverse lie with the head on the maternal right side. There is demonstrated cardiac activity with a heart rate of 122 bpm. There is a normal amniotic fluid volume. The largest amniotic fluid pocket measures 7.2 cm. The amniotic fluid index (HARSHAD) is 19.7 cm. The placenta is fundal in location. There are Grade 1 placental changes. The cervix measures 4.6 cm in length. Age by LMP: 34 weeks, 0 days. LISE by LMP: March 14, 2020. US/OB Limited (No Biometrics) IMPRESSION: Normal amniotic fluid. Electronically Signed: Teo Virk, at 9:28 EDT , Service support ,
== END ==
LOC: OPUS 08:28
PROVIDERS: PCP Family Medicine; Referring Provider Obstetrics & Gynecology; Visit Provider Obstetrics & Gynecology
DX: O10.919 Unspecified pre-existing hypertension complicating pregnancy, unspecified trimester (principal); Z3A.00 Weeks of gestation of pregnancy not specified
CPT/HCPCS: 76815

== ENCOUNTER → 2020-02-08 08:57 | Outpatient (CLI) | payer OTHER, SELFPAY ==
[2019-12-25 10:00] VITALS: BMI 42.3
[2020-02-01 10:09] VITALS: BMI 42.3
--- NOTE | 2020-02-08 09:00 | US_ITS ---
STUDY: SECOND AND THIRD TRIMESTER OBSTETRICAL ULTRASOUND - LIMITED REASON FOR EXAM: Female, 29 years old HARSHAD LMP: June 08, 2019 PRIOR ULTRASOUND: Comparison is made with prior examination dated February 01, 2020. TECHNIQUE: Transabdominal TECHNICAL QUALITY: Adequate. FINDINGS: There is a single intrauterine fetus. The fetus is in a transverse lie with the head on the maternal right side. There is demonstrated cardiac activity with a heart rate of 132 bpm. There is a normal amniotic fluid volume. The largest amniotic fluid pocket measures 6.7 cm. The amniotic fluid index (HARSHAD) is 18.6 cm. The placenta is fundal in location. There are Grade 1 placental changes. The cervix measures 4.4 cm in length. Age by LMP: 35 weeks, 0 days. LISE by LMP: March 14, 2020. US/OB Limited (No Biometrics) IMPRESSION: Normal amniotic fluid. Electronically Signed: Toe Virk, at 10:02 EDT , Service support ,
== END ==
LOC: OPUS 08:59
PROVIDERS: PCP Family Medicine; Visit Provider Obstetrics & Gynecology
DX: O10.919 Unspecified pre-existing hypertension complicating pregnancy, unspecified trimester (principal); Z3A.00 Weeks of gestation of pregnancy not specified
CPT/HCPCS: 76815

== ENCOUNTER → 2020-02-15 08:52 | Outpatient (CLI) | payer OTHER, SELFPAY ==
[2019-12-25 10:00] VITALS: BMI 42.3
[2020-02-08 09:48] VITALS: BMI 42.3
--- NOTE | 2020-02-15 08:53 | US_ITS ---
STUDY: SECOND AND THIRD TRIMESTER OBSTETRICAL ULTRASOUND - LIMITED REASON FOR EXAM: Female, 29 years old growth -- harshad LMP: June 07, 2019. PRIOR ULTRASOUND: Comparison is made with prior study dated February 08, 2020. TECHNIQUE: Transabdominal TECHNICAL QUALITY: Adequate. FINDINGS: There is a single intrauterine fetus. The fetus is in a breech presentation. There is demonstrated cardiac activity with a heart rate of 136 bpm. There is increased amniotic fluid volume consistent with polyhydramnios. The largest amniotic fluid pocket measures 8.8 cm. The amniotic fluid index (HARSHAD) is 28.78 cm. The placenta is fundal in location. There are Grade 2 placental changes. The cervix measures 3.6 cm in length. BIOMETRY: BPD: 9.82 cm: 40 weeks, 1 days HC: 34.93 cm: 40 weeks, 4 days AC: 34.99 cm: 38 weeks, 6 days FL: 6.98 cm: 35 weeks, 5 days Age by LMP: 36 weeks, 0 days. LISE by LMP: March 14, 2020. age by prior US: 37 weeks, 3 days. LISE by prior US: March 09, 2020. age by current US: 38 weeks, 5 days. LISE by current US: February 24, 2020. Estimated weight: 3532 grams, +/- 523 grams, 96 percentile. US/OB Limited With Biometrics IMPRESSION: Single live intracranial gestation with images patient wedge of 37 weeks and 3 days. The measurements obtained today correspond to 38 weeks and 5 days. Polyhydramnios. Electronically Signed: Teo Virk, at 9:53 EDT , Service support ,
[2020-02-15 11:42] LABS: Hemoglobin A1c 5.5 % (4.2-6.3)
== END ==
PROVIDERS: PCP Family Medicine; Referring Provider Obstetrics & Gynecology; Visit Provider Obstetrics & Gynecology
DX: O40.9XX0 Polyhydramnios, unspecified trimester, not applicable or unspecified (principal); Z3A.00 Weeks of gestation of pregnancy not specified
CPT/HCPCS: 36415; 76816; 83036

== ENCOUNTER → 2020-02-22 08:55 | Outpatient (CLI) | payer OTHER, SELFPAY ==
[2019-12-25 10:00] VITALS: BMI 42.3
[2020-02-15 09:43] VITALS: BMI 42.3
--- NOTE | 2020-02-22 08:55 | US_ITS ---
STUDY: SECOND AND THIRD TRIMESTER OBSTETRICAL ULTRASOUND - LIMITED REASON FOR EXAM: Female, 29 years old HARSHAD LMP: June 07, 2019. PRIOR ULTRASOUND: Comparison is made with prior examination dated February 15, 2020. TECHNIQUE: Transabdominal TECHNICAL QUALITY: Adequate. FINDINGS: There is a single intrauterine fetus. The fetus is in a breech presentation. There is demonstrated cardiac activity with a heart rate of 125 bpm. There is a normal amniotic fluid volume. The largest amniotic fluid pocket measures 13.4 cm. The amniotic fluid index (HARSHAD) is 32.96 cm. This is in keeping with polyhydramnios. The placenta is fundal in location. There are Grade 2 placental changes. The cervix measures 3.8 cm in length. BIOMETRY: Age by LMP: 37 weeks, 0 days. LISE by LMP: March 14, 2020. US/OB Limited (No Biometrics) IMPRESSION: Polyhydramnios. Electronically Signed: Teo Virk, at 9:57 EDT , Service support ,
== END ==
LOC: OPUS 08:55
PROVIDERS: PCP Family Medicine; Referring Provider Obstetrics & Gynecology; Visit Provider Obstetrics & Gynecology
DX: O10.919 Unspecified pre-existing hypertension complicating pregnancy, unspecified trimester (principal); Z3A.00 Weeks of gestation of pregnancy not specified
CPT/HCPCS: 76815

== ENCOUNTER 2020-02-29 05:15 | Inpatient (IN) | payer OTHER, SELFPAY ==
[2020-02-22 09:38] VITALS: BMI 42.3
[2020-02-29] VITALS (50 sets, daily range): BP systolic 105–187; BP diastolic 54–108; PULSE 73–122; RESP 16; TEMP 36.5–37.9; O2SAT 83–99; BMI 48.7
[2020-02-29] MEDS: Lactated Ringers 1,000 ML 999 ML IV (06:20)
[2020-02-29 06:22] LABS: Absolute Lymphocyte Count 2.61 X10^3/uL (0.83-4.51); Absolute Neutrophil Count 7.8 X10^3/uL (2.0-7.7); Basophil# 0.03 X10^3/uL; Basophil% 0.3 % (0-1); Eosinophil# 0.29 X10^3/uL; Eosinophils% 2.5 % (0-5); Hematocrit 34.3 % (37-47); Hemoglobin 11.5 g/dL (12.0-15.0); Lymphocyte # 2.61 X10^3/ul (4.0); Lymphocyte % 22.4 % (19-41); Mean Corp Hgb Conc 33.5 g/dL (32-36); Mean Corpuscular Hgb 28.8 pg (27.0-32.0); Mean Platelet Vol. 10.3 fl (6.2-12.0); Monocyte# 0.81 X10^3/uL; NRBC Flagged by Analyzer 0 % (0-5); Neutrophil # 7.75 X10^3/uL (2.7-7.7); Neutrophil % 66.6 % (47-70); Platelet Count 256 K/mm3 (150-450); RBC Distribution Width CV 13.6 % (11.6-14.6); RBC Distribution Width SD 42.2 fl (35.1-43.9); Red Blood Count 3.99 M/mm3 (4.2-5.4); White Blood Count 11.6 K/mm3 (4.4-11.0)
--- NOTE | 2020-02-29 07:10 | NURSING ---
this RN attempted to start IV x4 and was unsuccessful
[2020-02-29] MEDS: Lactated Ringers 1,000 ML 125 ML IV (07:31)
--- NOTE | 2020-02-29 07:40 | HP.PCM_ITS ---
- Problem List (1) Abnormal glucose affecting Status: Acute Comment: 1 value abnormal on GTT, disccussed healthy diet and weight gain. will check random sugars. (2) Anemia affecting Status: Acute Comment: iron added (3) Breech presentation Status: Acute Comment: if persistent plan ECV (4) GBS (group B streptococcus) UTI complicating Status: Acute Qualifiers: Comment: treated. treat in labor (5) Obesity affecting Status: Acute Qualifiers: Comment: 1 hour glucola WNL, encourage healthy weight gainNST wkly and growth US q4wk at 32 wk (6) Polyhydramnios affecting Status: Acute Comment: HgbA1c ordered (7) Status: Acute Qualifiers: Comment: Declines genetic, carrier and NTD. Normal anatomy. (8) Supervision of other normal Status: Acute Comment: PRR LISE 03/15/2020 Bronson Perez, Baby Boy Spouse Calvin (9) Chronic hypertension affecting Status: Chronic Comment: nl ekg baseline labs. weekly nsts and afis after 32 weeks, deliver at 38. growth q 4 weeks 32 and 36 History and Physical Date of Admission: 02/29/20 Intake Vital Signs 02/22/20 Height 5 ft 8 in 02/22/20 Weight: 320 lb 4 oz 02/22/20 BMI 48.6 02/22/20 BP 138/88 H Intake Visit Reasons: 37 WK OB/NST [employer] As[employer]er Required: No Is patient in pain?: No Allergies metronidazole [From Flagyl] Allergy (Verified 02/22/20 09:37) Hives Medications vits 75-iron 28 mg-folic acid 800 mcg-omega3 440 mg oral pack pkg PO ea 08/10/19 [History Confirmed 02/22/20] blood sugar diagnostic See Rx Instructions .ROUTE .MEDSUPPLY #100 ea 12/30/19 [Rx Confirmed 02/22/20] blood-glucose meter See Rx Instructions .ROUTE .MEDSUPPLY #1 ea 12/30/19 [Rx Confirmed 02/22/20] Last Menstral Period: 06/08/19 Zika: Zika virus screening: Negative : No PFSH PFSH Medical History H/O cold sores (Acute) Surgical History History of wisdom tooth extraction, class II edentulism (Acute) closed fixation and pinning of elbow (Acute) Family History Father Hypertension Cancer bladder Pulmonary embolism MYAH (obstructive sleep apnea) Multiple sclerosis Mother Hypertension Blount esophagus MYAH (obstructive sleep apnea) Grandmother Diabetes Hypertension Cancer small cell lung cancer Grandfather Hypertension Heart disease Myocardial infarction Cancer skin Social History (Updated 02/22/20 @ 15:[address] 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 Date Name GA/Weeks Outcome Route Bth Weight Infant Gen Labor Lgth Anesthesia Del [facility] Provider FOB 12/28/11 Eleanor 39 live - full term 9 llb 7 ounces M edmar 8 hours epidural [facility] Gilberto 07/20/18 Bronson 37 live - full term 6.8 Femal e epidural [facility] RC Delivery Date: 12/28/11 On 08/10/19 @ 09:01 Sonia Uribe polyhydramnios Delivery Date: 07/20/18 On 08/10/19 @ 09:01 Sonia Uribe Preeclampsia HPI 37 WK OB/NST: Details: JUANITA LANGE is a 29 year old who presents for OB Visit LISE Calculator Estimated Delivery Date Method Current WG Current Estimate 03/14/20 LMP (Certain) 37w 0d Expected Delivery Route/Plan Labor support person [] Pain management preference option [] cut cord/dad catch [] [] PP control plan [] discuss possible routes of delivery and associated risks [] special requests [] Specific Issue/Plans flu vaccine given tdap vaccine non rhogam no LARC form signed [] movement and labor precautions reviewed. movement and labor precautions reviewed. Problem list reviewed and updated with the most current details and appropriate orders placed. Continue routine care and follow up unless otherwise noted in visit notes/problem list details. Initial Weight: 278 lb Date EGA Weight BP Urine Prot Glucose FHR FuHt Pres Dilation Effaced St Visit Note 09/07/19 13w 0d 278 lb 6 oz (+6 oz) 139/83 Trace Negative 153 No VB, LOF. Note slightly elevated BP. Send Urine PCR. Recent normal CMP. Home BPs 120s/70-80. Monitor daily. 10/09/19 17w 4d 286 lb (+8 lb) 138/84 Negative Negative 150 SM- no vb cramping 11/06/19 21w 4d 292 lb 8 oz (+14 lb 8 oz) 136/85 Negative Negative 140 SM- no vb lof good fm no regular ctx 12/04/19 25w 4d 301 lb (+23 lb) 133/81 Negative Negative 145 SM- no vb lof good fm no reg ctx 12/25/19 28w 4d 307 lb (+29 lb) 123/78 Negative Negative 145 SM- no vb lof good fm no regular ctx cbc gct tdap 01/08/20 30w 4d 307 lb (+29 lb) 133/83 Negative Negative 145 SM- no vb lof fm no regular ctx 01/25/20 33w 0d 308 lb 8 oz (+30 lb 8 oz) 112/74 Negative Negative NST only-reactive 02/01/20 34w 0d 312 lb (+34 lb) 120/77 Negative Negative 120 SM- no vb lof good fm no regular ctx 02/08/20 35w 0d 313 lb (+35 lb) 132/81 Negative Negative 130 SM- no vb lof good fm no regular ctx 02/15/20 36w 0d 316 lb (+38 lb) 136/81 140 Breech SM- attempted NST but difficult to trace, reassuring ultrasound and significant movement heard, no audible decels. plan checking HgA1c 02/22/20 37w 0d 320 lb 4 oz (+42 lb 4 oz) 138/88 Negative Negative 140 Breech SM- discussed with patient and plan attempt for ECV and then plan LTCS if unsuccessful or IOL if successful. no vb lof good fm no regular ctx Notes Visit Date: 02/22/20 ??No visit notes to display Visit Date: 02/15/20 ??No visit notes to display Visit Date: 02/08/20 ??No visit notes to display Visit Date: 02/01/20 ??No visit notes to display Visit Date: 01/25/20 ??No visit notes to display Visit Date: 01/08/20 ??No visit notes to display Visit Date: 12/25/19 ??No visit notes to display Visit Date: 12/04/19 ??No visit notes to display Visit Date: 11/06/19 ??No visit notes to display Visit Date: 10/09/19 ??No visit notes to display Visit Date: 09/07/19 ??No VB, LOF. Note slightly elevated BP. Send Urine PCR. Recent normal CMP. Home BPs 120s/70-80. Monitor daily. ??Katie Charles NP-C on 09/07/19 ACOG First Trimester First Trimester: Desire for , Alcohol, Tobacco Cessation, Illicit/Recreational Drug/Substance Use, Intimate Partner Violence, Barriers to care, Unstable Housing, Communication Barriers, Environmental/Work Hazards, Anticipated Course of Care, Toxoplasmosis Precations, Use of Any medications, Sexual activity, Exercise, Dental Care, Sauna/Hot tub use, Seat Belt use, Childbirth classes/Hospital facilities, , Travel, Indications for US and Screening for Aneuploidy Second Trimester Second Trimester: Signs and Symptoms of Labor, Selecting a care provider, Reproductive Life Planning, Care Planning, Tobacco Cessation, Depression/Anxiety and Intimate Partner Violence Third Trimester Third Trimester: Pain Management Plans, Labor support person(s), Immediate Larc, Movement Monitoring and Feeding Yes ; discussed Trial of Labor after Counseling or discussed Circumcision preference Diagnostics Diagnostics Diagnostics Gest Glucose Tolerance MG/DL 12/30/19 Glucose 1 Hr 50 gm 138 mg/dL (70-140) 12/25/19 Hgb 10.9 g/dL (12.0-15.0) L 12/25/19 Hct 32.9 % (37-47) L 12/25/19 Details: HIV: Urine Culture: Sequential Screen: NIPT Screen: ROS Const Reports system reviewed and no additional complaints, except as docu Card Reports system reviewed and no additional complaints, except as docu Resp Reports system reviewed and no additional complaints, except as docu GI Reports system reviewed and no additional complaints, except as docu, Reports nausea Reports system reviewed and no additional complaints, except as docu Musc Reports system reviewed and no additional complaints, except as docu Exam Const General: cooperative, healthy appearing, comfortable, anxious HENMT Head: normal to inspection Nose: external nose normal Face and sinus: normal facial exam Neck Neck: normal visual inspection, full ROM, no lymphadenopathy Thyroid: thyroid normal Chest Chest palpation & inspection: normal inspection of the chest Resp Effort & Inspection: normal respiratory effort GI Inspection: normal to inspection Palpation: soft, other (gravid uterus) Other: vertex and appropriate size for gestational age Other: Cervical Exam: Extrem General: pedal edema Results POC Urinalysis 2 Dip (Clinic) Office Urine Glucose Negative Last Edit by Ashly Bautista on 02/22/20 09:47 Office Urine Protein Negative Last Edit by Ashly Bautista on 02/22/20 09:47 Assessment & Plan Problems 1. Breech presentation O32.1XX0 if persistent plan ECV 2. Anemia affecting O99.019 iron added 3. Polyhydramnios affecting O40.9XX0 HgbA1c ordered 4. Abnormal glucose affecting O99.810 1 value abnormal on GTT, disccussed healthy diet and weight gain. will check random sugars. 5. Chronic hypertension affecting O10.919 nl ekg baseline labs. weekly nsts and afis after 32 weeks, deliver at 38. growth q 4 weeks 32 and 36 6. Group B Streptococcus urinary tract infection affecting in first trimester O23.41 treated. treat in labor 7. Obesity affecting in second trimester O99.212 1 hour glucola WNL, encourage healthy weight gain NST wkly and growth US q4wk at 32 wk 8. 37 weeks gestation of Z3A.37 Declines genetic, carrier and NTD. Normal anatomy. 9. Supervision of other normal Z34.80 PRR LISE 03/15/2020 Bronson Perez, Baby Boy Spouse Calvin 29 yo @ 38 weeks cHTN Patient presents IOL, plan management for , pitocin/AROM oquendo bulb. Pain management: plans epidural. GBS negative. Management of any complications: ECV successful I have reviewed the [facility] and made any clinically relevant updates. Orders Orders: OB NST Today O10.919 POC Urinalysis 2 Dip (Clinic) Today Coding Level of Care Code OB Routine Diagnoses Breech presentation O32.1XX0 Anemia affecting O99.019 Polyhydramnios affecting O40.9XX0 Abnormal glucose affecting O99.810 Chronic hypertension affecting O10.919 Group B Streptococcus urinary tract infection affecting in first trimester O23.41 ??Trimester: first trimester Obesity affecting in second trimester O99.212 ??Trimester: second trimester 37 weeks gestation of Z3A.37 ??Weeks of gestation: 37 weeks Supervision of other normal Z34.80
[2020-02-29] MEDS: 0.9% Normal Saline Single 100 ML IV.SOLN. IY (08:20)
[2020-02-29] MEDS: Oxytocin 30 units/NS 500 ml 30 UNITS/500 ML IV.SOLN IV (09:22)
[2020-02-29] MEDS: Lactated Ringers 500 ML 999 ML IV (13:10)
--- NOTE | 2020-02-29 13:36 | PCM.PN.BLA ---
Progress Note cat I tracing reassuring, arom clear fluid, pit per protocol STROKE Vital Signs/Narrative: Vital Signs Temp Pulse BP Pulse Ox 02/29/20 13:33 88 98 02/29/20 12:26 81 148/68 H 02/29/20 11:40 80 125/71 H 02/29/20 11:06 98.5 F 81 114/58 L 02/29/20 10:21 98.5 F 81 123/58 H 02/29/20 09:53 81 113/68
[2020-02-29] MEDS: fentaNYL-bupivacaine (epidural) 100 ML BAG EPIDURAL (13:46)
[2020-02-29] MEDS: Oxytocin 30 units/NS 500 ml 30 UNITS/500 ML IV.SOLN 334 UNITS IV (15:55)
--- NOTE | 2020-02-29 16:05 | PCM.OPRPT ---
Problem List (1) Abnormal glucose affecting Status: Acute Comment: 1 value abnormal on GTT, disccussed healthy diet and weight gain. will check random sugars. (2) Anemia affecting Status: Acute Comment: iron added (3) Breech presentation Status: Acute Comment: if persistent plan ECV (4) GBS (group B streptococcus) UTI complicating Status: Acute Qualifiers: Comment: treated. treat in labor (5) Obesity affecting Status: Acute Qualifiers: Comment: 1 hour glucola WNL, encourage healthy weight gainNST wkly and growth US q4wk at 32 wk (6) Polyhydramnios affecting Status: Acute Comment: HgbA1c ordered (7) Status: Acute Qualifiers: Comment: Declines genetic, carrier and NTD. Normal anatomy. (8) Supervision of other normal Status: Acute Comment: PRR LISE 03/15/2020 Bronson Perez, Baby Boy Spouse Calvin (9) Chronic hypertension affecting Status: Chronic Comment: nl ekg baseline labs. weekly nsts and afis after 32 weeks, deliver at 38. growth q 4 weeks 32 and 36 Vaginal Delivery Maternal Presentation: Medically Indicated Induction iol CHTN Method of Induction: Pitocin, Rodriguez Bulb Amniotic Membrane Rupture Type: Artificial Amniotic Fluid Description: Clear Date of Procedure: 02/29/20 Pre-Operative Diagnosis: iol GHTN Surgery/ Procedure Performed: Spontaneous Vaginal Delivery Type of Anesthesia: Epidural Description of Procedure: Patient began pushing and delivered the head in the ALEXUS presentation. The head was delivered atraumatically [and a tight nuchal cord ?1 was identified and the infant delivered through it. The anterior and posterior shoulders delivered without complication followed by the rest of the and the was placed on the maternal abdomen. Delayed cord clamping was employed for approximately 60 seconds. Cord was clamped and cut and gentle traction was applied to the cord and the placenta delivered spontaneously immediately following it was noted to be intact with three-vessel cord. The perineum and vagina were inspected and noted to have a small first-degree perineal laceration that was repaired in the usual fashion with 3-0 Vicryl repeat. She had a first-degree laceration of the right labia also that was repaired with an interrupted stitch of 3-0 Vicryl Rapide. EBL was 300 cc. Patient and tolerated delivery well. Presentation: ALEXUS Placental Delivery Description: Spontaneous Placenta Disposition: [facility] Cord Vessel Description: 3 Vessels Cord Entanglement: Around neck x 1, tight, - - body and foot cord x 1 Drain: Rodriguez to straight drain Estimated Blood Loss: 300 Infant A gender: Male Episiotomy Description: None Laceration: Perineal Extension/lac, 1st degree Medications given after delivery: IV Pitocin Complications: None Multi Select Codes - Urinary/Genital Urinary/Genital CPT Codes: 74579 Vaginal Delivery [facility]
--- NOTE | 2020-02-29 17:44 | OP.PCM_ITS ---
Problem List (1) Abnormal glucose affecting Status: Acute Comment: 1 value abnormal on GTT, disccussed healthy diet and weight gain. will check random sugars. (2) Anemia affecting Status: Acute Comment: iron added (3) Breech presentation Status: Acute Comment: if persistent plan ECV (4) GBS (group B streptococcus) UTI complicating Status: Acute Qualifiers: Comment: treated. treat in labor (5) Obesity affecting Status: Acute Qualifiers: Comment: 1 hour glucola WNL, encourage healthy weight gainNST wkly and growth US q4wk at 32 wk (6) Polyhydramnios affecting Status: Acute Comment: HgbA1c ordered (7) Status: Acute Qualifiers: Comment: Declines genetic, carrier and NTD. Normal anatomy. (8) Supervision of other normal Status: Acute Comment: PRR LISE 03/15/2020 Matheus Perezlexysammi, Baby Boy Spouse Calvin (9) Chronic hypertension affecting Status: Chronic Comment: nl ekg baseline labs. weekly nsts and afis after 32 weeks, deliver at 38. growth q 4 weeks 32 and 36 Report of Operation Date of Procedure: 02/29/20 Description of Surgical Findings:: Preprocedure diagnosis: Breech presentation Post procedure diagnosis: Vertex presentation Procedure: External cephalic version Surgeon: Nevin Andrews EBL: None Complications: None Anesthesia: None Special medications: Terbutaline Seizure details: The fetus was found to be in breech presentation informed by ultrasound. Patient had an IV in place, normal amniotic fluid, no contraindications to a vaginal delivery, and reactive nonstress test prior to the procedure. Patient was placed in the dorsal supine position after the terbutaline was given. Ultrasound gel was applied to the patient's abdomen and using constant upward pressure to elevate the buttocks out of the pelvic inlet constant pressure was applied to the buttocks and to the area behind the back of the neck and head to encourage a forward roll of the fetus. Constant pressure was applied and slowly the infant was converted to a vertex presentation. Beds mariella ultrasound was used to confirm vertex presentation and reassuring heart rate. Patient was replaced on the NST and monitored to assure reassuring status. No complications. Multi Select Codes - Urinary/Genital Urinary/Genital CPT Codes: 31002 ECV
[2020-02-29] MEDS: Senna/Docusate Sodium 1 Tablet PO (21:14)
[2020-03-01 00:14] VITALS: BP 130/63; PULSE 77; RESP 16; TEMP 36.8
[2020-03-01 03:54] VITALS: BP 132/68; PULSE 76; RESP 16; TEMP 36.9
[2020-03-01 07:31] LABS: Absolute Lymphocyte Count 3.62 X10^3/uL (0.83-4.51); Absolute Neutrophil Count 7.5 X10^3/uL (2.0-7.7); Basophil# 0.04 X10^3/uL; Basophil% 0.3 % (0-1); Eosinophil# 0.35 X10^3/uL; Eosinophils% 2.8 % (0-5); Hematocrit 32.7 % (37-47); Hemoglobin 10.8 g/dL (12.0-15.0); Lymphocyte # 3.62 X10^3/ul (4.0); Lymphocyte % 28.9 % (19-41); Mean Corpuscular Hgb 28.6 pg (27.0-32.0); Mean Corpuscular Volume 86.7 fL (81-99); Mean Platelet Vol. 10.6 fl (6.2-12.0); Monocyte# 0.87 X10^3/uL; NRBC Flagged by Analyzer 0 % (0-5); Neutrophil # 7.53 X10^3/uL (2.7-7.7); Neutrophil % 60.2 % (47-70); Platelet Count 255 K/mm3 (150-450); RBC Distribution Width CV 13.9 % (11.6-14.6); RBC Distribution Width SD 43.4 fl (35.1-43.9); Red Blood Count 3.77 M/mm3 (4.2-5.4); White Blood Count 12.5 K/mm3 (4.4-11.0)
[2020-03-01 08:02] VITALS: BP 117/68; PULSE 88; RESP 18; TEMP 36.7; O2SAT 98
--- NOTE | 2020-03-01 08:57 | PN.OBGYN_ITS ---
Subjective: doing well no complaints pain controlled no CP SOB N V ambulating well tolerating po lochia moderate, going well - Physical Exam Vitals/I&O's: Vital Signs Temp Pulse Resp BP Pulse Ox 98.1 F 88 18 117/68 98 03/01/20 08:02 03/01/20 08:02 03/01/20 08:02 03/01/20 08:02 03/01/20 08:02 Oxygen Delivery Method Room Air Weight: 320 lb 8.834 oz Body Mass Index (BMI) 48.7 Intake and Output for Last 24 Hours 02/28/20 02/29/20 03/01/20 23:59 23:59 23:59 Intake Total 3153.84 / 3153.84 Output Total 1850 / 1850 Balance 1303.84 / 1303.84 General: Alert, Oriented x3 Laboratory Results 03/01/20 06:08: WBC 12.5 H, RBC 3.77 L, Hgb 10.8 L, Hct 32.7 L, MCV 86.7, MCH 28.6, MCHC 33.0, RDW Std Deviation 43.4, RDW Coeff of Ramesh 13.9, Plt Count 255, MPV 10.6, Immature Gran % (Auto) 0.800, Neut % (Auto) 60.2, Lymph % (Auto) 28.9, [place] % (Auto) 7.0, Eos % (Auto) 2.8, Baso % (Auto) 0.3, Absolute Neuts (auto) 7.5, Absolute Lymphs (auto) 3.62, Nucleated RBC % 0 Current Medications Acetaminophen (Tylenol) 1,000 mg PO Q8H PRN PRN PRN Reason: Pain Score 1-3/10 Bisacodyl (Dulcolax) 10 mg RECTAL UD PRN PRN Reason: If no BM Dibucaine (Dibucaine) 1 applic TOPICAL TID PRN PRN; Protocol PRN Reason: Discomfort Hydrocortisone (Hytone) 1 applic TOPICAL TID PRN PRN; Protocol PRN Reason: Discomfort Naproxen (Naprosyn) 500 mg PO Q8H PRN PRN PRN Reason: Pain Score 1-3/10 Ondansetron HCl (Zofran) 4 mg IV Q4H PRN PRN PRN Reason: Nausea Oxycodone HCl (Oxyir) 5 - 10 mg PO Q4H PRN PRN PRN Reason: Pain Score 4-10/10 Senna/Docusate Sodium (Senokot-S, Orquidea-Colace) 1 - 2 tablet PO DAILY PRN PRN PRN Reason: Constipation Last Admin: 02/29/20 21:14 Dose: 1 tablet Documented by: Simethicone (Mylicon) 80 mg PO PCHS PRN PRN Reason: Indigestion/Stomach pain Sodium Chloride () 5 - 15 ml IV UD PRN PRN Reason: SALINE FLUSH Medical Necessity - Tobacco Use Smoking Status: Never smoker Assessment/Plan All Active Problems (Last Reviewed 02/22/20 @ 09:37 by Ashly Bautista) Breech presentation (Acute) Polyhydramnios affecting (Acute) Anemia affecting (Acute) Abnormal glucose affecting (Acute) GBS (group B streptococcus) UTI complicating (Acute) Obesity affecting (Acute) (Acute) Supervision of other normal (Acute) Gestational diabetes (Resolved) Gestational hypertension (Resolved) Influenza B (Resolved) Sinusitis, acute (Resolved) s/p PPD # 1 1. routine post delivery care 2. breast feeding- support given 3. rh positive 4. rubella immune
--- NOTE | 2020-03-01 08:58 | DCINST_ITS ---
Discharge Diet: No Restrictions Discharge Activity: Return to Normal Activity, May not drive while taking narcotic pain medications., May Shower May resume sexual activity in: 4-6 weeks Call your doctor if your incision/area has: Continuous Slow Oozing, Sudden Increased Bleeding, Increased Pain/ Swelling, Increased Redness, Foul Smelling Discharge Additional Instructions: If you experience any of the following, contact your healthcare provider. * Bleeding that soaks a pad every hour for 2 hours * Fever 100.4 or higher * Unrelieved incision or abdominal pain * Swelling, redness, discharge or bleeding from your incision or episiotomy site * Your incision begins to separate * Problems urinating (including inability to urinate or burning while urinating). * Visual changes * Severe headache * Flu-like symptoms * Pain or redness in one of both of your breasts * Pain, warmth, tenderness or swelling in your legs, especially the calf area * Frequent nausea and vomiting * Symptoms of depression or anxiety If you experience any of the following, call 911 or go to the nearest Emergency Room. * Chest pain * Problems breathing * Seizure activity * Partial or complete paralysis of a body part, slurred speech, weakness or drooping of the face, or a sudden inability to walk or hold your balance Allergies/Adverse Reactions: Allergies metronidazole [From Flagyl] Allergy (Verified 02/29/20 06:12) Hives Medications to take at Discharge Vits [Prenatabs FA] 1 tab PO DAILY 02/29/20 Please Follow Up With: Nevin Andrews MD - [phone] When: Call to make an appointment with your doctor in 6 weeks. If you had elevated Blood pressure or 4th degree laceration you will need to be seen in 2 weeks. Primary Care Physician: Jb Mcarthur III, MD [Primary Care Provider] - Test Results: Test results from this visit will be discussed in further detail at your follow- up appointment, if applicable.
--- NOTE | 2020-03-01 08:58 | PCM.DCVAG ---
Discharge Diet: No Restrictions Discharge Activity: Return to Normal Activity, May not drive while taking narcotic pain medications., May Shower May resume sexual activity in: 4-6 weeks Call your doctor if your incision/area has: Continuous Slow Oozing, Sudden Increased Bleeding, Increased Pain/ Swelling, Increased Redness, Foul Smelling Discharge Additional Instructions: If you experience any of the following, contact your healthcare provider. Bleeding that soaks a pad every hour for 2 hours Fever 100.4 or higher Unrelieved incision or abdominal pain Swelling, redness, discharge or bleeding from your incision or episiotomy site Your incision begins to separate Problems urinating (including inability to urinate or burning while urinating). Visual changes Severe headache Flu-like symptoms Pain or redness in one of both of your breasts Pain, warmth, tenderness or swelling in your legs, especially the calf area Frequent nausea and vomiting Symptoms of depression or anxiety If you experience any of the following, call 911 or go to the nearest Emergency Room. Chest pain Problems breathing Seizure activity Partial or complete paralysis of a body part, slurred speech, weakness or drooping of the face, or a sudden inability to walk or hold your balance Allergies/Adverse Reactions: Allergies metronidazole [From Flagyl] Allergy (Verified 02/29/20 06:12) Hives Medications to take at Discharge Vits [Prenatabs FA] 1 tab PO DAILY 02/29/20 Please Follow Up With: Nevin Andrews MD - [phone] When: Call to make an appointment with your doctor in 6 weeks. If you had elevated Blood pressure or 4th degree laceration you will need to be seen in 2 weeks. Primary Care Physician: Jb Mcarthur III, MD [Primary Care Provider] - Test Results: Test results from this visit will be discussed in further detail at your follow-up appointment, if applicable.
[2020-03-01 12:40] VITALS: BP 136/78; PULSE 71; RESP 18; TEMP 36.8
[2020-03-01] MEDS: Naproxen 250 MG Tablet 500 MG PO (12:46)
[2020-03-01 16:05] VITALS: BP 135/69; PULSE 78; RESP 18; TEMP 37.1
== END 2020-03-01 19:40 | disposition home or self-care (01) | DRG 807 ==
PROVIDERS: Admitting Provider Obstetrics & Gynecology; PCP Family Medicine; Referring Provider Obstetrics & Gynecology; Visit Provider Obstetrics & Gynecology
PROC: 10E0XZZ Delivery of Products of Conception, External Approach (ICD-10-PCS; CPT 59514; principal; 2020-02-29 07:15)
DX: O10.92 Unspecified pre-existing hypertension complicating childbirth (principal); Z37.0 Single live birth; O32.1XX0 Maternal care for breech presentation, not applicable or unspecified; Z3A.38 38 weeks gestation of pregnancy; O99.824 Streptococcus B carrier state complicating childbirth; E66.9 Obesity, unspecified; O99.214 Obesity complicating childbirth; D64.9 Anemia, unspecified; O99.02 Anemia complicating childbirth; O69.1XX0 Labor and delivery complicated by cord around neck, with compression, not applicable or unspecified; O70.0 First degree perineal laceration during delivery
CPT/HCPCS: 59025; 59050; 59412; 76815; 85025; 86850; 86900; 86901; 99218; J7120; G0378

== ENCOUNTER 2020-04-02 17:12 | Day surgery (SDC) | payer OTHER, SELFPAY ==
[2020-02-29 06:03] VITALS: BMI 48.7
[2020-04-02] VITALS (11 sets, daily range): BP systolic 120–156; BP diastolic 73–103; PULSE 65–93; RESP 14–18; TEMP 36.6–37.6; O2SAT 92–98; BMI 42.5
--- NOTE | 2020-04-02 17:17 | ED.RN ---
SPOKE TO DIANA, OKAY WITH SEEING PT IN ED.
--- NOTE | 2020-04-02 17:43 | CT_ITS ---
STUDY: CT ABDOMEN AND PELVIS WITHOUT CONTRAST REASON FOR EXAM: Female, 30 years old. Right lower quadrant pain, RADIATION DOSAGE (If Supplied By Facility): CTDIvol = ( 17. ) mGy, DLP = ( 1315.82 ) mGycm TECHNIQUE: Transaxial images were obtained from the dome of the diaphragm to the symphysis pubis without oral contrast, and without intravenous contrast. Sagittal and coronal images were reconstructed. Individualized dose optimization techniques were used for this CT. COMPARISON: None. FINDINGS: The appendix is enlarged and surrounded by inflammatory change in the right lower quadrant without abscess or perforation. Abdominal solid organs are intact. There are bilateral lower pole less than 3 mm calyceal nonobstructing stones. CT/Abdomen/Pelvis W IV Cont ONLY IMPRESSION: Appendicitis, no perforation or abscess. Electronically Signed: Juliette Rodríguez, at 19:09 EDT Tel , Service support ,
[2020-04-02] MEDS: 0.9% Normal Saline 1,000 ML 1000 ML IV (17:48)
[2020-04-02] MEDS: Morphine 4 MG/ML Syringe IV (17:48)
[2020-04-02] MEDS: Ondansetron 4 MG/2 ML Vial IV (17:48)
[2020-04-02 17:59] LABS: Absolute Lymphocyte Count 2.68 X10^3/uL (0.83-4.51); Absolute Neutrophil Count 13.4 X10^3/uL (2.0-7.7); Basophil# 0.07 X10^3/uL; Basophil% 0.4 % (0-1); Eosinophils% 2.3 % (0-5); Hematocrit 42.5 % (37-47); Hemoglobin 13.6 g/dL (12.0-15.0); Lymphocyte # 2.68 X10^3/ul (4.0); Lymphocyte % 15.3 % (19-41); Mean Corpuscular Hgb 28.5 pg (27.0-32.0); Mean Corpuscular Volume 89.1 fL (81-99); Mean Platelet Vol. 10.4 fl (6.2-12.0); Monocyte# 0.96 X10^3/uL; Monocyte% 5.5 % (0-10); NRBC Flagged by Analyzer 0 % (0-5); Neutrophil # 13.36 X10^3/uL (2.7-7.7); Neutrophil % 76.2 % (47-70); Platelet Count 384 K/mm3 (150-450); RBC Distribution Width CV 13.2 % (11.6-14.6); RBC Distribution Width SD 42.4 fl (35.1-43.9); Red Blood Count 4.77 M/mm3 (4.2-5.4); White Blood Count 17.5 K/mm3 (4.4-11.0)
[2020-04-02 18:06] LABS: Mucous, Urine 0 SEEN /hpf (<or=2+); Red Blood Cells-Urine 0 SEEN /hpf (0-5); Squamous Epithelial Cells - UA 0 SEEN /hpf (5-10)
[2020-04-02 18:11] LABS: Color, Urine Straw (Yellow); Glucose, Dipstick Normal (Normal); Ketone-Dipstick Negative (Negative); Leukocyte Esterase-Dipstick 25 /ul (Negative); Nitrite-Dipstick Negative (Negative); Occult Blood-Urine 50 /ul (Negative); Protein-Dipstick Negative (Negative); Urine Bilirubin Dipstick Negative (Negative); Urine Clarity Clear (Clear); Urine Urobilinogen Normal (Normal); Urine pH 6.5 (5.0 - 8.0)
[2020-04-02 18:22] LABS: ALB/GLOB Ratio 0.9 RATIO (0.9-2.4); AST(SGOT) 69 U/L (15-37); Alanine Aminotransfer ALT/SGPT 42 U/L (13-56); Albumin, Serum 3.8 g/dL (3.2-5.0); Alkaline Phosphatase 81 U/L (45-117); Anion Gap 6 (5-15); BUN 18 mg/dL (7-18); BUN/Creat Ratio 18.9 RATIO (10-20); Calcium,Total 9.5 mg/dL (8.5-10.1); Chloride 110 mmol/L (98-107); Creatinine, Serum 0.95 mg/dL (0.55-1.02); EST Glomerular Filtration Rate 73 mL/min (>60); Est Glom Filt Rate - Afr Amer 89 mL/min (>60); Estimated Creatinine Clearance 87.35 ml/min; Globulin 4.1 g/dL (2.2-4.2); Glucose 76 mg/dL (74-106); Lipase 21 U/L (73-393); Protein, Total 7.9 g/dL (6.4-8.2); Sodium Level 142 mmol/L (136-145)
[2020-04-02 18:25] LABS: Bacteria RARE /hpf (None Seen); Renal Epithelial Cells 0-5 SEEN /hpf (0-5); White Blood Cells 0-5 SEEN /hpf (0-5)
--- NOTE | 2020-04-02 18:29 | ED.DCSUM_ITS ---
- ER Visit Summary Date of Service: 04/02/20 Chief Complaint: Abdominal pain History of Present Illness: The patient is a [address] Jb Mcarthur iii and Dr. Mikel Modi. She reports that she woke up from a nap at 2 PM and had right lower quadrant pain. She describes it as a sharp, aching pain is 1010 at worst and 4-10 currently. Is worsened by movement and bumps in the road. Is relieved by remaining still. She had nausea without vomiting. Last bowel was today. No matter medication. No dysuria or frequency. She denies any flank pain. No fever or chills. Patient had a vaginal delivery on February 28. She was discharged from the hospital after 2 days. She reports that she has had complete resolution of vaginal bleeding and discharge. She does report that there is a small amount of blood when she wipes after urinating only currently. Physical Examination: Vitals: 97.8, 151/103, 93, 16, 96% on room air which is not hypoxic. General: Well-nourished and well-developed. Head: Normocephalic atraumatic. Neck: Supple, no lymphadenopathy. No JVD. Nontender. Cardiovascular: Regular rate and rhythm. No murmurs. Respiratory: No respiratory distress. Clear to auscultation bilaterally. Abdominal: Soft, moderate tensional patient the right lower quadrant in the suprapubic region, nondistended, normal bowel sounds. No guarding, rebound, or peritoneal signs. Back: Nontender. Extremities: Nontender, no edema. Skin: Normal color, no rash. Neurologic: Alert and oriented ?3. Cranial nerves II through XII are intact. Normal strength and sensation. Psych: Normal affect. Test Results: CBC shows a white count of 17.5 with 76 seg neutrophils and 15 lymphocytes. Chem-7 shows a chloride of 110. LFTs show an AST of 69. Lipase is normal. CT shows appendicitis with no perforation or abscess. Emergency Department Course and Treatment: Repeat blood pressure is 142/77. Patient was given a dose of morphine and Zofran IV. She is resting more comfortably. She was given a dose of Zosyn IV. Treatment Plan: Patient was discussed with Dr. Cedillo and Dr. Mikel Modi. She will be taken to the operating room. Disposition: Admitted in stable condition. Impression: 1. Appendicitis. 2. Status post vaginal delivery February 29, 2020. This note was generated with [employer] dictation software. It may contain incorrect words, spelling, and punctuation that were not noted in review of the chart prior to signing ED Disposition - Plan for ED Patient: Referrals: Jb Mcarthur III, MD [Primary Care Provider] -
--- NOTE | 2020-04-02 19:00 | APP_PTH ---
PATIENT: JUANITA LANGE LOC: [facility] U#:[id number] AGE/SX: 30/F ROOM: RE04/02/[address]: Dr. Rian Cedillo MD : 1990 BED: DIS: 04/02/2020 SPEC #: [id number] RECD: 04/04/20 07:22 STATUS: JANE RAJI #: [id number] MAURA: 04/02/20 19:[address]: Rian Cedillo DEPT: SURGICAL PATHOLOGY RECD BY: Brandee Campo ENTERED: 04/04/20 09:43 SP TYPE: APPENDIX OTHR DR: Dr. Jb Mcarthur III, MD Tissues: Appendix, NOS Procedures: Surgery Specimen Level III HEADER OPERATION: Appendectomy PRE-OP DIAGNOSIS: Acute appendicitis TISSUE SUBMITTED: Appendix MICROSCOPIC DIAGNOSIS Appendix, appendectomy: Acute appendicitis. Acute serositis. AM:stephy 04/05/20 MICROSCOPIC DESCRIPTION Slides are reviewed. GROSS DESCRIPTION Received is one container labeled with the patient's name and designated appendix. The specimen consists of an L-shaped appendix measuring 8 cm in length and up to 1 cm in diameter. The attached periappendiceal adipose tissue measures up to 2.5 cm in width. The serosa is focally covered with mcwilliams purulent exudate. No obvious perforation is identified. The lumen contains a small amount of fecal material. No fecalith is identified. Machine Heel Builder sections are submitted in one cassette. / SJ:stephy 04/04/20 TC:2 CPT: 39915
[2020-04-02 19:03] LABS: Internal QC Validated? YES +Cl - CLEAR BKGD
[2020-04-02 19:04] LABS: Pregnancy, Urine Negative Negative
--- NOTE | 2020-04-02 19:31 | PCM.HP.STD ---
Problem List (1) Acute appendicitis Status: Acute Qualifiers: Acute appendicitis type: unspecified acute appendicitis type Qualified Code(s): K35.80 - Unspecified acute appendicitis History of Present Illness Date of Admission: 04/02/20 The patient is a 30 year old F who presents with 1 day history of right lower quadrant pain that started as umbilical pain. She has nausea but no vomiting. She reports subjective fever but no objective fever. Past Medical History Past Medical History (Chronic Problems): Chronic Problems (Last Reviewed 02/22/20 @ 09:37 by Ashly Bautista) Chronic hypertension affecting (Chronic) nl ekg baseline labs. weekly nsts and afis after 32 weeks, deliver at 38. growth q 4 weeks 32 and 36 Medical History: Medical History (Last Reviewed 02/22/20 @ 09:37 by Ashly Bautista) H/O cold sores Z86.19 Allergies metronidazole [From Flagyl] Allergy (Verified 04/02/20 17:12) Hives Home Medications: Ambulatory Orders Medication Instructions Recorded Vits [Prenatabs FA] 1 tab PO DAILY 02/29/20 norethindrone (contraceptive) 0.35 0.35 mg PO QDAY #84 tab 03/08/20 mg tablet Surgical History: Surgical History (Last Reviewed 02/22/20 @ 09:37 by Ashly Bautista) History of wisdom tooth extraction, class II edentulism K08.492 closed fixation and pinning of elbow Smoking Status: Never smoker - *Family History Maternal Family History: Family History (Last Reviewed 02/22/20 @ 09:37 by Ashly Bautista) Father Hypertension Cancer Pulmonary embolism MYAH (obstructive sleep apnea) Multiple sclerosis Mother Hypertension Blount esophagus MYAH (obstructive sleep apnea) Grandmother Diabetes Hypertension Cancer Grandfather Hypertension Heart disease Myocardial infarction Cancer Review of Systems Constitutional: Reports: Fever. Denies: Anorexia HEENT: Denies: Difficulty Hearing Cardiovascular: Denies: Chest Pain Respiratory: Denies: Cough, Shortness of Breath Gastrointestinal: Reports: Abdominal Pain, Nausea. Denies: Hematemesis, Hematochezia, Vomiting Genitourinary: Denies: Dysuria Musculoskeletal: Denies: Joint Tenderness Skin: Denies: Jaundice Hematologic/ Lymphatic: Denies: Anemia VTE Information - Inpt Only VTE Present on Admission: No VTE Mechan Device Prophylaxis: SCD's Patient Problems: Active and Suspected Problems (Last Reviewed 02/22/20 @ 09:37 by Ashly Bautista) Acute appendicitis (Acute) - Physical Exam Vitals/I&O's: Vital Signs Temp Pulse Resp BP Pulse Ox 97.8 F 82 16 153/100 H 96 04/02/20 17:13 04/02/20 17:49 04/02/20 17:49 04/02/20 17:49 04/02/20 17:13 Weight: 280 lb Body Mass Index (BMI) 42.5 General: Alert, Oriented x3 Neck: No JVD Lungs: Normal air movement Cardiovascular: Regular rate, Regular Rhythm Abdomen: Soft, Non-Distended, Tender - Tender in the right lower quadrant Psych/Mental Status: Normal Affect Laboratory Results 04/02/20 17:25: Urine Color Straw, Urine Clarity Clear, Urine pH 6.5, Ur Specific [place] 1.010, Urine Protein Negative, Urine Glucose (UA) Normal, Urine Ketones Negative, Urine Occult Blood 50 H, Urine Nitrite Negative, Urine Bilirubin Negative, Urine Urobilinogen Normal, Ur Leukocyte Esterase 25 H, Urine RBC 0 SEEN, Urine WBC 0-5 SEEN, Ur Squamous Epith Cells 0 SEEN, Ur Renal Epithelial Cell 0-5 SEEN, Urine Bacteria RARE, Urine Mucus 0 SEEN 04/02/20 17:25: Urine Test Negative 04/02/20 17:45: WBC 17.5 H, RBC 4.77, Hgb 13.6, Hct 42.5, MCV 89.1, MCH 28.5, MCHC 32.0, RDW Std Deviation 42.4, RDW Coeff of Ramesh 13.2, Plt Count 384, MPV 10.4, Immature Gran % (Auto) 0.300, Neut % (Auto) 76.2 H, Lymph % (Auto) 15.3 L, Rincon % (Auto) 5.5, Eos % (Auto) 2.3, Baso % (Auto) 0.4, Absolute Neuts (auto) 13.4 H, Absolute Lymphs (auto) 2.68, Nucleated RBC % 0 04/02/20 17:45: Sodium 142, Potassium TNP, Chloride 110 H, Carbon Dioxide 26.0, Anion Gap 6, BUN 18, Creatinine 0.95, Estim Creat Clear Calc 87.35, Est GFR (MDRD) Af Amer 89, Est GFR (MDRD) Non-Af 73, BUN/Creatinine Ratio 18.9, Glucose 76, Calcium 9.5, Total Bilirubin 0.30, AST 69 H, ALT 42, Alkaline Phosphatase 81, Total Protein 7.9, Albumin 3.8, Globulin 4.1, Albumin/Globulin Ratio 0.9, Lipase 21 L 04/02/20 19:06: COVID-19 (LILIYA) Pending Clinical Impression(s) from Imaging Studies Abdomen/Pelvis CT 04/02/20 17:43 IMPRESSION: Appendicitis, no perforation or abscess. Electronically Signed: Juliette Marcos, at 19:09 EDT Tel , Service support , Assessment/Plan All Active Problems (Last Reviewed 02/22/20 @ 09:37 by Ashly Bautista) Acute appendicitis (Acute) Breech presentation (Acute) Polyhydramnios affecting (Acute) Anemia affecting (Acute) Abnormal glucose affecting (Acute) GBS (group B streptococcus) UTI complicating (Acute) Obesity affecting (Acute) (Acute) Supervision of other normal (Acute) Gestational diabetes (Resolved) Gestational hypertension (Resolved) Influenza B (Resolved) Sinusitis, acute (Resolved) 30-year-old female with acute appendicitis 1. Patient has CT scan and labs that are consistent with acute appendicitis. I discussed laparoscopic appendectomy with the patient in detail. I discussed the risks including but not low to bleeding, infection, injury of surrounding organs including the bowel, bladder, ureters. The patient understands the risks and is willing to proceed with surgery. 2. We discussed the current risks associated with COVID-19. While it is understood that there is a community spread of COVID-19, the risk of radames COVID-19 while at [facility] ([facility]) is very low; however, the risk cannot be completely mitigated because of the community spread of the disease. We discussed in detail the risk of exposure to and/or potential harm posed by the COVID-19 virus with having a surgery/procedure at this time versus the risk of delaying the surgery/procedure. It is not possible to know either the risk of delaying the surgery or procedure or chance of getting an infection with perfect accuracy, but a joint decision was made to proceed at this time with the scheduled surgery/procedure as indicated on the consent form. Patient was notified that we will need to comply with any screening or testing [facility] wishes to perform or that surgery may be delayed for any positive results. Rian Cedillo MD Pager: [facility] [address] [place] [address] [address] [place] [address] Office:
--- NOTE | 2020-04-02 19:55 | ED.RN ---
REPORT TO ISABELA RITCHIE IN OR.
[2020-04-02] MEDS: 0.9% Normal Saline 1,000 ML 100 ML IV (20:00)
[2020-04-02] MEDS: Bupiv/Epi 0.25% 30 ML Vial (20:52)
--- NOTE | 2020-04-02 21:04 | PCM.OPRPT ---
Problem List (1) Acute appendicitis Status: Acute Qualifiers: Acute appendicitis type: unspecified acute appendicitis type Qualified Code(s): K35.80 - Unspecified acute appendicitis Report of Operation Date of Procedure: 04/02/20 Pre-Operative Diagnosis: Acute appendicitis Post-Operative Diagnosis: Same Surgery/Procedure Performed:: Laparoscopic appendectomy Description of Surgical Findings:: Inflamed appendix Specimen's removed: Appendix Description of Procedure: The patient was brought into the operating room and general anesthesia was induced. The left arm was tucked and the abdomen was prepped and draped in usual sterile fashion. A small midline incision was made superior to the umbilicus and using Visiport technique a 5 mm port was placed into the abdomen. The abdomen. The abdomen was insufflated to 15 mmHg and the camera was inserted and the abdomen was inspected for any injuries upon entering the abdomen. There were none. The patient was placed in Trendelenburg position and a 5 mm ports placed in the left lower quadrant and suprapubic areas under direct visualization. The upper midline incision was extended and the port was upsized to a 12 mm port. Next using atraumatic bowel graspers the appendix was identified. The appendix was grasped and elevated and Enseal was used to take down the mesoappendix. A stapler was used to come across the base of the appendix. The appendix was then placed in Endo Catch bag and removed through the umbilical incision. The staple line was inspected and found to be hemostatic and intact. The 12 mm port and bag containing appendix were removed. Corky Wilson needle was used to place an 0 Vicryl suture across the midline fascia. The incisions were then irrigated with saline and dried. Local anesthetic was injected into the incision sites. The skin incisions were then closed with interrupted 4-0 Monocryl suture and Steri-Strips. Bandages were applied and the patient was awoken and taken to PACU in stable condition. Patient tolerated the procedure well. - Admit VTE Documentation VTE Mechan Device Prophylaxis: SCD's
--- NOTE | 2020-04-02 21:09 | DCINST_ITS ---
Discharge Diet: Light diet - advance as tolerated Discharge Activity: May Not Drive - for 3-5 days or while taking narcotic pain meds. May shower in (days): 1 Lifting Restrictions: 20 lbs for 2 weeks Call your doctor if your incision/area has: Continuous Slow Oozing, Sudden Increased Bleeding, Increased Pain/ Swelling, Increased Redness, Foul Smelling Discharge Call your doctor if you observe: Fever of 101 or Higher Suture Line Care: Avoid Pulling/Pushing, Avoid Pinching/Bending Additional Dressing/Incision Instructions:: Keep dressing clean and dry. Change or remove dressing in 2 days. Leave steri strips for 1 week. May protect with a gauze bandaid. Medications to take at Discharge Vits [Prenatabs FA ] 1 tab PO DAILY 02/29/20 norethindrone (contraceptive) 0.35 mg tablet 0.35 mg PO QDAY #84 tab 03/08/20 Oxycodone HCl/Acetaminophen [Percocet 5-325 mg Tablet] 1 - 2 tab PO Q6H PRN 5 Days #30 tablet 04/02/20 Allergies/Adverse Reactions: Allergies metronidazole [From Flagyl] Allergy (Verified 04/02/20 17:12) Hives The following prescriptions were given: Oxycodone HCl/Acetaminophen [Percocet 5-325 mg Tablet] 1 - 2 tab PO Q6H PRN 5 Days #30 tablet PRN Reason: Pain Score 4-10/10 Transmission Status: Sent to [id number] Primary Care Physician: Jb Mcarthur III, MD [Primary Care Provider] - Test Results: Test results from this visit will be discussed in further detail at your follow- up appointment, if applicable. Please Follow Up With: Rian Cedillo MD When: Please call to schedule 2 week follow up appointment. [phone]
[2020-04-02] MEDS: Lactated Ringers 1,000 ML 100 ML IV (21:24)
== END 2020-04-02 22:25 | disposition home or self-care (01) ==
LOC: ED 17:48 → MS3 21:23 → SDC 04-03 05:46
PROVIDERS: Emergency Provider Emergency Medicine; PCP Family Medicine; Visit Provider Surgery
PROC: 0DTJ4ZZ Resection of Appendix, Percutaneous Endoscopic Approach (ICD-10-PCS; CPT 44970; principal; 2020-04-02 19:00)
DX: K35.80 Unspecified acute appendicitis (principal)
CPT/HCPCS: 44970; 74177; 80053; 81001; 81025; 83690; 85025; 87635; 88304; 99285; G2023; J7030; J7120; Q9967; C1760; J2405; U0003

== ENCOUNTER → 2020-04-14 | Outpatient (CLI) | payer OTHER, SELFPAY ==
[2020-04-14 09:52] VITALS: BMI 42.5
[2020-04-21 05:36] LABS: HPV APTIMA, High Risk Negative (Negative)
== END | disposition home or self-care (01) ==
LOC: LABSPEC 16:31
PROVIDERS: PCP Family Medicine; Referring Provider Obstetrics & Gynecology; Visit Provider Obstetrics & Gynecology
DX: Z12.4 Encounter for screening for malignant neoplasm of cervix (principal)
CPT/HCPCS: 87624; 88175; G0145

== ENCOUNTER 2022-11-22 11:53 | Outpatient (RCR) | payer OTHER, SELFPAY ==
--- NOTE | 2022-11-22 12:42 | HP.PTEVAL ---
Patient's Visit Information JUANITA LANGE is a 32 year old F referred to Physical Therapy by TONYA Verdugo with a diagnosis of L knee pain. Date of Evaluation: 11/22/22 Physical Therapist: BIRD HooverT, OCS, CSCS - Visit Plan Frequency: 2x /Week Duration: x4 if symptoms return Plan: t is doing well and fully functional today without major biomechanical deficits. i have educated her on what to avoid to help the meniscus to contiue to heal which she will do at home. She will get brace and use it in difficult situations. She will take meloxicam and call for recheck if pain returns to help with any new biomechanical abnormalities. it appears as if the meniscus flares up without warning or reason every now and then creating great dysfunction and life activities effected and then goes away. Will treat with ROM, strength, modalities if needed if symptoms return. - Subjective L knee pain. Gets stuck sometimes. This has happened for a year or more. Catches 2-3x/ every six weeks. taking longer to relieve. Hurts when it catches and brings tears to her eyes, Can take up to 60 minutes to relieve. Sore a lot of other times. Hurts medial side. No obvious mechanism of injury. 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 Has 3 kids oldest will be 11. Hurts to squat and stoop but can do it. Doctor thinks she has a tear and needs to have therapy. Getting brace. Gave her meloxicam but hasn't taken it because it did not hurt. Hurt two weeks ago and last week. Sleep is interrupted when it aches. Activities are interrupted only if locked and then is helpless. - Pain L knee Pain Intensity (Out of 10): 0 Pain Intensity Range: 0, 9 - Objective Walks normal today, steps reciprocal without pain, tow at a time without pain. marches and butt kicks without pain. Transfers I bed and chair. AROM B knees if full today and without pain, Op on L produces no pain. strength in hips is 4+/5, knees 4+/5 ext and flexion, ankles 5/5. Flexibility in legs is functional and without obvious deficits. reflexes 2/3 patella and achilles. Sensation LE WNL to gross light touch. - ant drawer. - tj. - post sag. - pivot shift. - bounce home. - patellar grind. - disco test today. Patient appears normal today but says it could go south without warning. - Balance/Special Test Scores Lower Extremity Functional Score: 72 - Goals Goal 1:: Patient I in knowledge of what to avoid to allow healing at meniscus Goal Time Frame: MET Goal 2:: Pt go one month without knee flaring up Goal Time Frame: 4-6 Weeks Goal 3:: Pt score 76 on LEFS Goal Time Frame: 4-6 Weeks - Rehabilitation Potential Physical Therapy Diagnosis: Likely meniscal pathology Rehabilitation Potential: Questionable - Anticipated Interventions Patient/Client Instruction: Educate patient on: Condition, Plan of Care For the Purpose of:: To decrease pain, To increase ROM, To increase tolerance to activity/condition/position, To improve ability of physical actions for home/community/work/leisure Therapeutic Exercise to Include: Strength training, Postural training, Flexibilty training, Gait and locomotor training, Passive ROM, Active ROM For the Purpose of:: To decrease pain, To increase ROM, To improve nutrient delivery to tissue, To improve muscle performance and motor function TENS: Yes Cryotherapy (ice pack, ice massage): Yes For the Purpose of:: To decrease pain, To increase ROM, To improve nutrient delivery to tissue Thank you for the opportunity to evaluate your patient. For Medicare and Medicare HMO plans, please review the plan of care and approve it. It will need to be FAXED BACK to us at [phone] for Medicare purposes. For Medicare only, by signing this I certify the plan of care. Please let me know if there are questions or concerns regarding this plan of care. Physician Signature: Date:
--- NOTE | 2023-01-30 09:35 | HP.PT.NRP ---
JUANITA LANGE was seen in my office for initial evaluation on 11/22/22. The following Plan of Care was established for this patient: Initial Frequency: 2x /Week Initial Duration: x4 if symptoms return Patient/Client Instruction: Educate patient on: Condition, Plan of Care For the Purpose of:: To decrease pain, To increase ROM, To increase tolerance to activity/condition/position, To improve ability of physical actions for home/community/work/leisure Therapeutic Exercise to Include: Strength training, Postural training, Flexibilty training, Gait and locomotor training, Passive ROM, Active ROM For the Purpose of:: To decrease pain, To increase ROM, To improve nutrient delivery to tissue, To improve muscle performance and motor function TENS: Yes Cryotherapy (ice pack, ice massage): Yes For the Purpose of:: To decrease pain, To increase ROM, To improve nutrient delivery to tissue This patient was last seen in our office 11/22/22. Pertinent comments regarding their Physical therapy will appear below: Pt seen for IE and POC established, approval not received but when patient notified she wanted to be self pay. She neglected to schedule any visits. At this point, it has been over 2 months and I will discontinue due to nonattendance. At this point I will be discontinuing this patient from physical therapy. I would be happy to see this patient again in the future if found appropriate by the physician. Thank you! Nakul Worthy, DPT, OCS, CSCS Balance/Gait/Functional tests - Balance/Special Test Scores Lower Extremity Functional Score: 72
== END 2022-11-22 19:00 | disposition home or self-care (01) ==
LOC: PT 11:53
PROVIDERS: Referring Provider Physician Assistant; Visit Provider Physician Assistant
DX: M25.562 Pain in left knee (principal)
CPT/HCPCS: 97161

== ENCOUNTER → 2023-10-21 | Outpatient (CLI) | payer OTHER, SELFPAY ==
--- OUTSIDE RECORDS SUMMARY | 2023-10-21 09:43 | XMS RPT_ITS | CCD ---
Author Name Unknown Address [address] [place] [address] Organization [facility] Care Team Providers Care French Pastry Cook Name Role Phone Nevin Andrews MD Unavailable [phone] Geoff TECHNICAL SUPPORT CONSULTANT, Lia N Unavailable Unavailab le Navarro TECHNICAL SUPPORT CONSULTANT, Vika Thais Unavailable Unavaila ble Navarro TECHNICAL SUPPORT CONSULTANT, Vika Thais Unavailable Unavaila ble Geoff TECHNICAL SUPPORT CONSULTANT, Lia N Unavailable Unavailab Facundo Barrera Unavailable Gabbie Wallace Unavailable Unavailab Nevin Ham MD Unavailable [phone] Allergies Allergy Classification Reported Allergen(s) Allergy Type Date of Onset Reaction(s) Facility (10 sources) metroNIDAZOLE drug allergy hives [facility] Work Phone: Medications Completed/Discontinued Medications Medication Drug Class(es) Dates Sig (Normalized) Sig (Original) Acetaminophen / Codeine (20 sources) Opioid Agonist Start: 11-09-2011 take 1 tablet by mouth every six hours as needed for pain TYLENOL WITH CODEINE #3 TABS one tablet by mouth every 6hr as needed pain, avoid driving or operating machine under the influence of medication. ACETAMINOPHEN-CODE INE TABS [id number] Joshua Singh MD Problems Active Problems Problem Classification Problem Date Documented Date Episodic/Chronic Other nutritional; endocrine; and metabolic disorders (6 sources) Body mass index 40+ - severely obese; Translations: [Other specified health status] Onset: 05-14-2017 05-14-2017 Chronic Unclassified (4 sources) Gynecologic examination ; Translations: [Encounter for gynecological examination (general) (routine) without abnormal findings] Onset: 05-14-2017 05-14-2017 Unclassified (4 sources) Screening for malignant neoplasm of cervix ; Translations: [Encounter for screening for malignant neoplasm of cervix] Onset: 05-14-2017 05-14-2017 Unclassified (5 sources) Physical examination; Translations: [Encounter for general adult medical examination without abnormal findings] Onset: 07-05-2010 07-05-2010 Unclassified (2 sources) Removal of intrauterine contraceptive device done; Translations: [Encounter for removal of intrauterine contraceptive device] Onset: 05-14-2017 05-14-2017 Unclassified (2 sources) Procedure carried out on subject; Translations: [Encounter for screening for human papillomavirus (HPV)] Onset: 05-14-2017 05-14-2017 Past or Other Problems Problem Classification Problem Date Documented Date Episodic/Chronic Contraceptive and procreative management (4 sources) Encounter for removal of intrauterine contraceptive device; Translations: [Encounter for removal of intrauterine contraceptive device] Onset: 05-14-2017 05-14-2017 Episodic Immunizations and screening for infectious disease (4 sources) Encounter for screening for human papillomavirus (HPV); Translations: [Encounter for screening for human papillomavirus (HPV)] Onset: 05-14-2017 05-14-2017 Episodic Other ear and sense organ disorders (10 sources) Otalgia, unspecified ear; Translations: [Otalgia, unspecified ear] Onset: 03-30-2017 03-30-2017 Episodic Other upper respiratory infections (10 sources) Acute sinusitis; Translations: [Acute sinusitis, unspecified] Onset: 03-30-2017 03-30-2017 Episodic Otitis media and related conditions (10 sources) Otitis media; Translations: [Otitis media, unspecified, right ear] Onset: 03-30-2017 03-30-2017 Episodic Sprains and strains (20 sources) Sprain of knee; Translations: [Low back strain] Onset: 08-17-2011 11-09-2011 Episodic Viral infection (2 sources) Herpes simplex; Translations: [Herpesviral infection, unspecified] Onset: 08-07-2017 08-07-2017 Episodic Results Test Name Value Interpretation Reference Range Facil ity Vital Signs Date Time Vital Sign Value Performing Clinician Victor Hugo rowley 08-07-2017 15:27-0400 Body Temperature 98.3 [degF] Vika Navarro LPN [facility] Work Phone: 08-07-2017 15:27-0400 BP Diastolic 80 mm[Hg] Vika Navarro TECHNICAL SUPPORT CONSULTANT [facility] Work Phone: 08-07-2017 15:27-0400 BP Systolic 143 mm[Hg] Vika Navarro TECHNICAL SUPPORT CONSULTANT [facility] Work Phone: 08-07-2017 15:27-0400 Height 172.72 cm Vika Navarro TECHNICAL SUPPORT CONSULTANT [facility] Work Phone: 08-07-2017 15:27-0400 Pulse (Heart Rate) 75 /min Vika Navarro TECHNICAL SUPPORT CONSULTANT [facility] Work Phone: 08-07-2017 15:27-0400 Respiratory Rate 18 /min Vika Navarro TECHNICAL SUPPORT CONSULTANT [facility] Work Phone: 05-14-2017 08:23-0400 BMI (Body Mass Index) 42.42 kg/m2 Nevin Andrews MD [facility] 05-14-2017 08:23-0400 Body Temperature 97.2 [degF] Nevin Andrews MD [facility] 05-14-2017 08:23-0400 Height 172.72 cm Nevin Andrews MD [facility] 05-14-2017 08:23-0400 Pulse (Heart Rate) 86 /min eNvin Andrews MD [facility] 05-14-2017 08:23-0400 Respiratory Rate 16 /min Nevin Andrews MD [facility] 05-14-2017 08:23-0400 Weight 126.55 kg Nevin Andrews MD [facility] 03-30-2017 12:20-0400 BMI (Body Mass Index) 39.98 kg/m2 Lia Tellez LPN [facility] Work Phone: 03-30-2017 12:20-0400 Body Temperature 98.5 [degF] Lia Tellez LPN [facility] Work Phone: 03-30-2017 12:20-0400 BP Diastolic 68 mm[Hg] Lia Tellez LPN [facility] Work Phone: 03-30-2017 12:20-0400 BP Systolic 126 mm[Hg] Lia Tellez LPN [facility] Work Phone: 03-30-2017 12:20-0400 Height 172.72 cm Lia Tellez LPN [facility] Work Phone: 03-30-2017 12:20-0400 Pulse (Heart Rate) 111 /min Lia Tellez LPN [facility] Work Phone: 03-30-2017 12:20-0400 Pulse Oximetry 98 % Lia Tellez LPN [facility] Work Phone: 03-30-2017 12:20-0400 Respiratory Rate 12 /min Lia Tellez LPN [facility] Work Phone: 03-30-2017 12:20-0400 Weight 119.3 kg Lia Tellez LPN [facility] Work Phone: 09-17-2011 09:54-0500 BSA (Body Surface Area) 2.28 m2 Lia Tellez LPN [facility] Work Phone: Procedures Date Procedure Procedure Detail Performing Clinician Start: 05-14-2017 Gynecologic examination Annual gynecological examination Vika Navarro LPN Start: 05-14-2017 End: 05-14-2017 Removal intrauterine device iud Nevin Andrews MD Work Phone: Start: 05-14-2017 Screening for malignant neoplasm of cervix Screening for cervical cancer Vika Navarro LPN Start: 05-14-2017 Gynecologic examination Annual gynecological examination Nevin Andrews MD Start: 05-14-2017 End: 05-14-2017 Remove intrauterine device Nevin Andrews MD Work Phone: Start: 05-14-2017 Screening for malignant neoplasm of cervix Screening for cervical cancer Nevin Andrews MD Start: 11-09-2011 End: 11-12-2011 Follow up Appt 1 week Joshua Singh MD Start: 11-09-2011 End: 11-12-2011 Follow up Appt 1 week Joshua Singh MD Start: 07-05-2010 Physical examination PHYSICAL EXAMINATION Vikagrayson Navarro LPN Start: 07-05-2010 Physical examination PHYSICAL EXAMINATION Lia Mittalall LP N Plan of Treatment Date Care Activity Detail Author Start: 05-14-2017 End: 05-14-2017 Appointment Appointment [facility] Work Phone: Start: 03-30-2017 End: 03-30-2017 Appointment Appointment [facility] Work Phone: Start: 11-09-2011 End: 11-12-2011 Follow up Appt 1 week Follow up Appt 1 week [facility] Work Phone: Start: 11-09-2011 End: 11-12-2011 Follow up Appt 1 week Follow up Appt 1 week [facility] Work Phone: Start: 08-27-2011 End: 08-28-2011 [facility]Or[facility] Work Phone: Start: 08-27-2011 End: 08-28-2011 PT-Orthotics [facility] Work Phone: Patient Education [facility] Work Phone: Additional Source Comments FOR RECORDS PERTAINING TO PATIENTS WHO ARE OR HAVE BEEN ENROLLED IN A CHEMICAL DEPENDENCY/SUBSTANCEABUSE PROGRAM, SOME INFORMATION MAY BE OMITTED. This clinical summary was aggregated from multiple sources. Caution should be exercised in using it in the provision of clinical care. This summary normalizes information from multiple sources, and as a consequence, information in this document may materially change the coding, format and clinical context of patient data. In addition, data may be omitted in some cases. CLINICAL DECISIONS SHOULD BE BASED ON THE PRIMARY CLINICAL RECORDS. [employer] provides no warranty or guarantee of the accuracy or completeness of information in this document.
[2023-10-21 09:54] LABS: Absolute Lymphocyte Count 2.36 X10^3/uL (0.83-4.51); Absolute Neutrophil Count 7.5 X10^3/uL (2.0-7.7); Basophil# 0.04 X10^3/uL; Basophil% 0.4 % (0-1); Eosinophil# 0.11 X10^3/uL; Hematocrit 38.3 % (37-47); Hemoglobin 12.7 g/dL (12.0-15.0); Lymphocyte # 2.36 X10^3/ul (0.83-4.51); Lymphocyte % 22.1 % (19-41); Mean Corp Hgb Conc 33.2 g/dL (32-36); Mean Corpuscular Hgb 28.2 pg (27.0-32.0); Mean Corpuscular Volume 85.1 fL (81-99); Monocyte# 0.53 X10^3/uL; NRBC Flagged by Analyzer 0 % (0-5); Neutrophil # 7.54 X10^3/uL (2.7-7.7); Neutrophil % 70.7 % (47-70); Platelet Count 341 K/mm3 (150-450); RBC Distribution Width CV 13.2 % (11.6-14.6); RBC Distribution Width SD 40.8 fl (35.1-43.9); White Blood Count 10.7 K/mm3 (4.4-11.0)
[2023-10-21 10:15] LABS: ALB/GLOB Ratio 0.8 RATIO (0.9-2.4); AST(SGOT) 16 U/L (15-37); Alanine Aminotransfer ALT/SGPT 31 U/L (13-56); Albumin, Serum 3.4 g/dL (3.2-5.0); Alkaline Phosphatase 55 U/L (45-117); Anion Gap 5 (5-15); BUN 10 mg/dL (7-18); BUN/Creat Ratio 15.2 RATIO (10-20); Calcium,Total 9.8 mg/dL (8.5-10.1); Chloride 111 mmol/L (98-107); Creatinine, Serum 0.66 mg/dL (0.55-1.02); EST Glomerular Filtration Rate 110 mL/min (>60); Est Glom Filt Rate - Afr Amer 133 mL/min (>60); Glucose 100 mg/dL (74-106); Protein, Total 7.4 g/dL (6.4-8.2); Sodium Level 139 mmol/L (136-145)
[2023-10-21 10:53] LABS: HIV - WCH Non-Reactive (Nonreactive); Hepatitis B Surface Antigen Non-Reactive (Nonreactive); Hepatitis C Antibody Non-Reactive (Nonreactive); Rubella IgG Reactive (Nonreactive); Syphilis Antibodies Non-reactive
[2023-10-21 11:02] LABS: Hemoglobin A1c 5.2 % (3.8-5.6)
[2023-10-24 05:08] LABS: Chlamydia By Nucleic Acid AMP Negative (Negative); Gonococcus By Nucleic Acid AMP Negative (Negative)
== END | disposition home or self-care (01) ==
PROVIDERS: Referring Provider Obstetrics & Gynecology; Visit Provider Obstetrics & Gynecology
DX: Z34.90 Encounter for supervision of normal pregnancy, unspecified, unspecified trimester (principal); Z87.59 Personal history of other complications of pregnancy, childbirth and the puerperium
CPT/HCPCS: 36415; 80053; 83036; 85025; 86703; 86762; 86780; 86803; 86850; 86900; 86901; 87086; 87340; 87491; 87591

== ENCOUNTER → 2023-11-05 | Outpatient (CLI) | payer OTHER, SELFPAY ==
--- OUTSIDE RECORDS SUMMARY | 2023-11-05 16:44 | XMS RPT_ITS | CCD ---
Author Name Unknown Address [address] [place] [address] Organization [facility] Care Team Providers Care Supervisor Felting Name Role Phone Nevin Andrews MD Unavailable [phone] Geoff DIAL POLISHER, Lia N Unavailable Unavailab le Navarro DIAL POLISHER, Vika Thais Unavailable Unavaila ble Navarro DIAL POLISHER, Vika Thais Unavailable Unavaila ble Geoff DIAL POLISHER, Lia N Unavailable Unavailab Facundo Barrera Unavailable Gabbie Wallace Unavailable Unavailab Nevin Ham MD Unavailable [phone] Allergies Allergy Classification Reported Allergen(s) Allergy Type Date of Onset Reaction(s) Facility (10 sources) metroNIDAZOLE drug allergy hives [facility] Work Phone: Medications Completed/Discontinued Medications Medication Drug Class(es) Dates Sig (Normalized) Sig (Original) Acetaminophen / Codeine (20 sources) Opioid Agonist Start: 11-09-2011 take 1 tablet by mouth every six hours as needed for pain TYLENOL WITH CODEINE #3 TABS one tablet by mouth every 6hr as needed pain, avoid driving or operating machine under the influence of medication. ACETAMINOPHEN-CODE INE TABS [id number] Joshua Singh MD Problems Active Problems Problem [...] Vika Navarro LPN [facility] Work Phone: 08-07-2017 15:27-0400 BP Diastolic 80 mm[Hg] Vika Navarro DIAL POLISHER [facility] [place] Work Phone: 08-07-2017 15:27-0400 BP Systolic 143 mm[Hg] Vika Navarro DIAL POLISHER [facility] [place] Work Phone: 08-07-2017 15:27-0400 Height 172.72 cm Vika Navarro DIAL POLISHER [facility] Work Phone: 08-07-2017 15:27-0400 Pulse (Heart Rate) 75 /min Vika Navarro DIAL POLISHER [facility] Work Phone: 08-07-2017 15:27-0400 Respiratory Rate 18 /min Vika Navarro DIAL POLISHER [facility] Work Phone: 05-14-2017 08:23-0400 BMI (Body Mass Index) 42.42 kg/m2 Nevin Andrews MD [facility] 05-14-2017 08:23-0400 Body Temperature 97.2 [degF] Nevin Andrews MD [facility] 05-14-2017 08:23-0400 Height 172.72 cm Nevin Andrews MD [facility] 05-14-2017 08:23-0400 Pulse (Heart Rate) 86 /min Nevin Andrews MD [facility] 05-14-2017 08:23-0400 Respiratory Rate 16 /min Nevin Andrews MD [facility] 05-14-2017 08:23-0400 Weight 126.55 kg Nevin Andrews MD [facility] 03-30-2017 12:20-0400 BMI (Body Mass Index) 39.98 kg/m2 Lia Tellez LPN [facility] Work Phone: 03-30-2017 12:20-0400 Body Temperature 98.5 [degF] Lia Tellez LPN [facility] Work Phone: 03-30-2017 12:20-0400 BP Diastolic 68 mm[Hg] Lia Tellez LPN [facility] Work Phone: 03-30-2017 12:20-0400 BP Systolic 126 mm[Hg] Lia Tellez LPN [facility] Work Phone: 03-30-2017 12:20-0400 Height 172.72 cm Lia Tellez LPN [facility] Work Phone: 03-30-2017 12:20-0400 Pulse (Heart Rate) 111 /min Lia Tellez LPN [facility] Work Phone: 03-30-2017 12:20-0400 Pulse Oximetry 98 % Lia Tellez LPN [facility] Work Phone: 03-30-2017 12:20-0400 Respiratory Rate 12 /min Lia Tellez LPN [facility] Work Phone: 03-30-2017 12:20-0400 Weight 119.3 kg Lia Tellez LPN [facility] Work Phone: 09-17-2011 09:54-0500 BSA (Body Surface Area) 2.28 m2 Lia Tellez LPN [facility] Work Phone: Procedures Date Procedure [...] Author Start: 05-14-2017 End: 05-14-2017 Appointment Appointment [facility] Work Phone: Start: 03-30-2017 End: 03-30-2017 Appointment Appointment [facility] Work Phone: Start: 11-09-2011 End: 11-12-2011 Follow up Appt 1 week Follow up Appt 1 week [facility] Work Phone: Start: 11-09-2011 End: 11-12-2011 Follow up Appt 1 week Follow up Appt 1 week [facility] Work Phone: Start: 08-27-2011 End: 08-28-2011 PT-Orthotics [facility] Work Phone: Start: 08-27-2011 End: 08-28-2011 PT-Orthotics [facility] Work Phone: Patient Education [facility] Work Phone: Additional Source [...] BE BASED ON THE PRIMARY CLINICAL RECORDS. [employer] provides no warranty or guarantee of the accuracy or completeness of information in this document.
[2023-11-05 17:54] LABS: Protein, Urine (Random) < 6.0 mg/dL (<11.9)
== END | disposition home or self-care (01) ==
LOC: LABSPEC 16:41
PROVIDERS: Referring Provider Obstetrics & Gynecology; Visit Provider Obstetrics & Gynecology
DX: Z87.59 Personal history of other complications of pregnancy, childbirth and the puerperium (principal)
CPT/HCPCS: 82570; 84156

== ENCOUNTER → 2023-11-18 | Outpatient (CLI) | payer OTHER, SELFPAY ==
--- NOTE | 2023-11-18 10:11 | US_ITS ---
STUDY: FIRST TRIMESTER OBSTETRICAL ULTRASOUND REASON FOR EXAM: Female, 33 years old spotting with LMP: August 17, 2023. TECHNIQUE: Transabdominal and Transvaginal TECHNICAL QUALITY: Adequate. PRIOR ULTRASOUND: None. FINDINGS: There is visualization of a single gestational sac in a normal intrauterine position. There is visualization of the placenta. Posterior placenta. No evidence of placenta previa. There is a 2.8 cm x 2.3 cm x 0.7 cm subchorionic hematoma at the tip of the placenta. There is visualization of a live embryo. The crown-rump length (CRL) measures 7.8 cm, indicating an estimated gestational age (EGA) of 13 weeks, 5 days. There is demonstrated cardiac activity with a heart rate of 153 bpm. The estimated gestation age (EGA) by LMP is 13 weeks, 2 days. The estimated date of delivery (LISE) by LMP is May 23, 2024. The estimated gestation age (EGA) by US is 13 weeks, 5 days. The estimated date of delivery (LISE) by US is May 20, 2024. The cervical length measures 5.5 cm. The uterus measures 17.6 cm x 8.8 cm x 7.5 cm. There is no demonstrated uterine fibroid. The cervix is closed. The ovaries were not visualized. There is no fluid in the cul de sac. US/Transvaginal w/Preg US IMPRESSION: Single live uterine gestation with a mean gestational age of 13 weeks and 5 days. 2.8 cm x 2.3 cm x 0.7 cm subchorionic hematoma along the distal portion of the placenta. Electronically Signed: Teo Virk MD at 11:26 EST ,
--- OUTSIDE RECORDS SUMMARY | 2023-11-18 10:49 | XMS RPT_ITS | CCD ---
Author Name Unknown Address [address] [place] [address] Organization [facility] Care Team Providers Care Dictating Transcribing Machine Servicer Name Role Phone Nevin Andrews MD Unavailable [phone] Geoff ECONOMIC CONSULTANT, Lia N Unavailable Unavailab le Navarro ECONOMIC CONSULTANT, Vika Thais Unavailable Unavaila ble Navarro ECONOMIC CONSULTANT, Vika Thais Unavailable Unavaila ble Geoff ECONOMIC CONSULTANT, Lia N Unavailable Unavailab Facundo Barrera Unavailable Gabbie Wallace Unavailable Unavailab Nevin Ham MD Unavailable [phone] Allergies Allergy Classification Reported Allergen(s) Allergy Type Date of Onset Reaction(s) Facility (10 sources) metroNIDAZOLE drug allergy hives [facility] Work Phone: Medications Completed/Discontinued [...] the influence of medication. ACETAMINOPHEN-CODE INE TABS [id number] Joshua Singh MD Problems Active Problems Problem [...] 15:27-0400 BP Diastolic 80 mm[Hg] Vika Navarro ECONOMIC CONSULTANT [facility] [place] Work Phone: 08-07-2017 15:27-0400 BP Systolic 143 mm[Hg] Vika Navarro ECONOMIC CONSULTANT [facility] [place] Work Phone: 08-07-2017 15:27-0400 Height 172.72 cm Vika Navarro ECONOMIC CONSULTANT [facility] Work Phone: 08-07-2017 15:27-0400 Pulse (Heart Rate) 75 /min Vika Navarro ECONOMIC CONSULTANT [facility] Work Phone: 08-07-2017 15:27-0400 Respiratory Rate 18 /min Vika Navarro ECONOMIC CONSULTANT [facility] Work Phone: 05-14-2017 08:23-0400 BMI (Body Mass Index) 42.42 kg/m2 Nevin Andrews MD [facility] 05-14-2017 08:23-0400 Body Temperature 97.2 [degF] Nevin Andrews MD [facility] 05-14-2017 08:23-0400 Height 172.72 cm Nevin Andrews MD [facility] 05-14-2017 08:23-0400 Pulse (Heart Rate) 86 /min Nevin Andrews MD [facility] 05-14-2017 08:23-0400 Respiratory Rate 16 /min Nevin Andrews MD [facility] 05-14-2017 08:23-0400 Weight 126.55 kg Nevin Andrews MD [facility] 03-30-2017 12:20-0400 BMI (Body Mass Index) 39.98 kg/m2 Lia Tellez LPN [facility] Work Phone: 03-30-2017 12:20-0400 Body Temperature 98.5 [degF] Lia Tellez LPN [facility] Work Phone: 03-30-2017 12:20-0400 BP Diastolic 68 mm[Hg] Lia Tellez LPN [facility] Work Phone: 03-30-2017 12:20-0400 BP Systolic 126 mm[Hg] Lia Tellez LPN [facility] Work Phone: 03-30-2017 12:20-0400 Height 172.72 cm Lia Tellez LPN [facility] Work Phone: 03-30-2017 12:20-0400 Pulse (Heart Rate) 111 /min Lia Tellez LPN [facility] Work Phone: 03-30-2017 12:20-0400 Pulse Oximetry 98 % Lia Tellez LPN [facility] Work Phone: 03-30-2017 12:20-0400 Respiratory Rate 12 /min Lia Tlelez LPN [facility] Work Phone: 03-30-2017 12:20-0400 Weight 119.3 kg Lia Tellez LPN [facility] Work Phone: 09-17-2011 09:54-0500 BSA (Body Surface Area) 2.28 m2 Lia Tellez LPN [facility] Work Phone: Procedures Date [...] Start: 05-14-2017 End: 05-14-2017 Appointment Appointment [facility] Work Phone: Start: 03-30-2017 End: 03-30-2017 Appointment Appointment [facility] Work Phone: Start: 11-09-2011 End: 11-12-2011 Follow up Appt 1 week Follow up Appt 1 week [facility] Work Phone: Start: 11-09-2011 End: 11-12-2011 Follow up Appt 1 week Follow up Appt 1 week [facility] Work Phone: Start: 08-27-2011 End: 08-28-2011 PT-Orthotics [facility] Work Phone: Start: 08-27-2011 End: 08-28-2011 PT-Orthotics [facility]otics [facility] Work Phone: Patient Education [facility] Work Phone: Additional [...] BE BASED ON THE PRIMARY CLINICAL RECORDS. [employer] provides no warranty or guarantee of the accuracy or completeness of information in this document.
== END | disposition home or self-care (01) ==
PROVIDERS: Referring Provider Obstetrics & Gynecology; Visit Provider Obstetrics & Gynecology
DX: O26.859 Spotting complicating pregnancy, unspecified trimester (principal); Z3A.00 Weeks of gestation of pregnancy not specified
CPT/HCPCS: 76817

== ENCOUNTER → 2024-02-24 | Outpatient (CLI) | payer OTHER, SELFPAY ==
[2024-02-24 09:28] LABS: Absolute Lymphocyte Count 2.26 X10^3/uL (0.83-4.51); Basophil# 0.03 X10^3/uL; Basophil% 0.3 % (0-1); Eosinophil# 0.15 X10^3/uL; Eosinophils% 1.5 % (0-5); Hematocrit 33.5 % (37-47); Hemoglobin 11.1 g/dL (12.0-15.0); Lymphocyte # 2.26 X10^3/ul (0.83-4.51); Lymphocyte % 22.8 % (19-41); Mean Corp Hgb Conc 33.1 g/dL (32-36); Mean Corpuscular Hgb 28.3 pg (27.0-32.0); Mean Corpuscular Volume 85.5 fL (81-99); NRBC Flagged by Analyzer 0 % (0-5); Neutrophil # 6.99 X10^3/uL (2.7-7.7); Neutrophil % 70.5 % (47-70); Platelet Count 293 K/mm3 (150-450); RBC Distribution Width CV 13.6 % (11.6-14.6); RBC Distribution Width SD 42.1 fl (35.1-43.9); Red Blood Count 3.92 M/mm3 (4.2-5.4); White Blood Count 9.9 K/mm3 (4.4-11.0)
[2024-02-24 09:41] LABS: Glucose Challenge Gest 1H 50g 166 mg/dL (70-140)
[2024-02-24 19:01] LABS: HIV - WCH Non-Reactive (Nonreactive); Syphilis Antibodies Non-reactive
== END | disposition home or self-care (01) ==
PROVIDERS: Referring Provider Obstetrics & Gynecology; Visit Provider Obstetrics & Gynecology
DX: O09.90 Supervision of high risk pregnancy, unspecified, unspecified trimester (principal); Z13.1 Encounter for screening for diabetes mellitus; Z3A.00 Weeks of gestation of pregnancy not specified
CPT/HCPCS: 36415; 82950; 85025; 86703; 86780

== ENCOUNTER → 2024-03-03 | Outpatient (CLI) | payer OTHER, SELFPAY ==
--- NOTE | 2024-03-03 13:23 | US_ITS ---
STUDY: SECOND AND THIRD TRIMESTER OBSTETRICAL ULTRASOUND - LIMITED REASON FOR EXAM: Female, 33 years old growth at 28 and 36 weeks LMP: 08/17/2023 PRIOR ULTRASOUND: None. TECHNIQUE: Transabdominal TECHNICAL QUALITY: Adequate. FINDINGS: There is a single intrauterine fetus. The fetus is in a cephalic presentation. There is demonstrated cardiac activity with a heart rate of 152 bpm. There is a normal amniotic fluid volume. The largest amniotic fluid pocket measures 7.1 cm. The amniotic fluid index (HARSHAD) is 19.2 cm. The placenta is posterior in location and is not low lying. There are Grade 1 placental changes. The cervix is not visualized. BIOMETRY: BPD: 8.2: 32 weeks, 6 days HC: 28.8: 31 weeks, 4 days AC: 27.0: 31 weeks, 1 days FL: 5.5: 28 weeks, 6 days Age by LMP: 28 weeks, 3 days. LISE by LMP: 05/23/2024. age by prior US: weeks, days. LISE by prior US: . age by current US: 31 weeks, 1 days. LISE by current US: 05/04/2024. Estimated weight: 1633 grams, +/- 245 grams, 98 percentile. Gender: US/OB Limited With Biometrics IMPRESSION: Single live fetus in a vertex presentation. survey not performed on this exam. Placenta is grade 1 and is not low-lying. age by current US: 31 weeks, 1 days. LISE by current US: 05/04/2024. Estimated weight: 1633 grams, +/- 245 grams, 98 percentile. Electronically Signed: Husam Larry MD at 19:18 EDT ,
== END | disposition home or self-care (01) ==
LOC: US 13:23
PROVIDERS: Visit Provider Obstetrics & Gynecology
DX: O99.810 Abnormal glucose complicating pregnancy (principal); O99.210 Obesity complicating pregnancy, unspecified trimester; Z3A.00 Weeks of gestation of pregnancy not specified
CPT/HCPCS: 76816

== ENCOUNTER → 2024-04-06 | Outpatient (CLI) | payer OTHER, SELFPAY ==
--- NOTE | 2024-04-06 11:16 | US_ITS ---
HISTORY: history of polyhydramnios and LGA. TECHNIQUE: Transabdominal pelvic ultrasound was performed. 42 images. COMPARISON: 03/03/2024. FINDINGS: INTRAUTERINE GESTATION(s): Single. PRESENTATION: Cephalic. HEART MOTION: 133 bpm. PLACENTA: Posterior, grade 1. No placenta previa. AMNIOTIC FLUID INDEX (HARSHAD): 17.6 cm. Largest fluid pocket 7.6 cm. biometry- BIPARIETAL DIAMETER: 9.4 cm, corresponding to 38 weeks 0 days. HEAD CIRCUMFERENCE: 33.7 cm, corresponding to 38 weeks 4 days. ABDOMINAL CIRCUMFERENCE: 33.3 cm, corresponding to 37 weeks 1 day. FEMUR LENGTH: 6.4 cm, corresponding to 32 weeks 6 days. ESTIMATED GESTATIONAL AGE: 37 weeks 0 days. ESTIMATED DUE DATE (LISE): 04/27/2024. ESTIMATED WEIGHT: 2907 g corresponding to 99th percentile. US/OB Limited With Biometrics IMPRESSION: Single living intrauterine with an estimated gestational age of 37 weeks 0 days. Amniotic fluid index 17.6 cm. Estimated weight corresponding to 99th percentile. Electronically Signed: Kristie Ambriz MD at 9:56 EDT ,
== END | disposition home or self-care (01) ==
LOC: US 11:14
PROVIDERS: Referring Provider Obstetrics & Gynecology; Visit Provider Obstetrics & Gynecology
DX: O99.810 Abnormal glucose complicating pregnancy (principal); O99.210 Obesity complicating pregnancy, unspecified trimester; Z87.59 Personal history of other complications of pregnancy, childbirth and the puerperium; Z3A.32 32 weeks gestation of pregnancy
CPT/HCPCS: 76816

== ENCOUNTER 2024-04-08 17:44 | Outpatient (CLI) | payer SELFPAY ==
[2024-04-08] VITALS (7 sets, daily range): BP systolic 116–147; BP diastolic 69–81; PULSE 85–104; RESP 16; TEMP 37; O2SAT 96; BMI 50.1
[2024-04-08 18:45] LABS: ROM Internal Control Test YES-OK TO RESULT pt. (Internal QC); ROM Patient Test Negative (Negative); Record Kit Lot#, ROM+ K1866
--- NOTE | 2024-04-12 07:08 | OB.TRI.PN_ITS ---
Progress Notes Date of Service: 04/08/24 Progress Note: Patient presents for triage evaluation secondary to possible SROM, ctx FHT: 135 Moderate variability reactive no decelerations category I tracing [place]: no regular Contractions Assessment and plan: amniotic membranes intcat false labor Reactive NST, reassur ing maternal and status patient discharged to home to follow-up as shceudled. See problem list details for additional plan information. Laboratory Studies: Laboratory Tests 04/08/24 Range/Units 18:00 Vag Amniotic Fld Detect Negative (Negative) Charges/Coding Procedures Urinary/Genital [id number]: [id number] non-stress test Interp
== END 2024-04-08 19:35 | disposition home or self-care (01) ==
LOC: WPOUT 17:45 → WP 17:46
PROVIDERS: Referring Provider Obstetrics & Gynecology; Visit Provider Obstetrics & Gynecology
DX: O47.9 False labor, unspecified (principal); Z3A.00 Weeks of gestation of pregnancy not specified
CPT/HCPCS: 59025; 59050; 84112; 99221; G0378

== ENCOUNTER → 2024-04-27 | Outpatient (CLI) | payer OTHER, SELFPAY ==
--- NOTE | 2024-04-27 07:56 | US_ITS ---
STUDY: SECOND AND THIRD TRIMESTER OBSTETRICAL ULTRASOUND - LIMITED REASON FOR EXAM: Female, 34 years old growth LMP: August 17, 2023. PRIOR ULTRASOUND: Comparison is made with prior study dated April 06, 2024. TECHNIQUE: Transabdominal TECHNICAL QUALITY: Adequate. FINDINGS: There is a single intrauterine fetus. The fetus is in a cephalic presentation. There is demonstrated cardiac activity with a heart rate of 154 bpm. There is a normal amniotic fluid volume. The largest amniotic fluid pocket measures 7.7 cm. The amniotic fluid index (HARSHAD) is 22.9 cm. The placenta is fundal and posterior in location and is not low lying. There are Grade 1 placental changes. The cervix was not measured due to head position. BIOMETRY: BPD: 9.74 cm: 39 weeks, 6 days HC: 35.99 cm: 42 weeks, days AC: 36.35 sono: 40 weeks, 2 days FL: 6.79 cm: 34 weeks, 6 days Age by LMP: 36 weeks, 2 days. LISE by LMP: May 23, 2024. age by prior US: 39 weeks, 0 days. LISE by prior US: May 04, 2024. age by current US: 39 weeks, 1 days. LSIE by current US: May 03, 2024. Estimated weight: 3619 grams, +/- 553 grams, 90 percentile. US/OB Limited With Biometrics IMPRESSION: Single live uterine gestation with mean gestational age of 39 weeks. The measurements obtained today fall within the normal expected range. Electronically Signed: Teo Virk MD at 14:29 EDT ,
== END | disposition home or self-care (01) ==
PROVIDERS: Referring Provider Obstetrics & Gynecology; Visit Provider Obstetrics & Gynecology
DX: O09.93 Supervision of high risk pregnancy, unspecified, third trimester (principal); Z3A.00 Weeks of gestation of pregnancy not specified
CPT/HCPCS: 76816; 87081

== ENCOUNTER 2024-05-06 19:15 | Inpatient (IN) | payer OTHER, SELFPAY ==
[2024-05-06 19:25] VITALS: BMI 50.1
[2024-05-06] MEDS: Lactated Ringers 1,000 ML 50 ML IV (19:50)
[2024-05-06 20:04] VITALS: BP 137/78; PULSE 88
[2024-05-06 20:05] VITALS: RESP 16; TEMP 36.7
[2024-05-06 20:09] LABS: Absolute Neutrophil Count 7.8 X10^3/uL (2.0-7.7); Basophil# 0.03 X10^3/uL; Basophil% 0.3 % (0-1); Eosinophil# 0.04 X10^3/uL; Eosinophils% 0.4 % (0-5); Hematocrit 35.1 % (37-47); Hemoglobin 11.7 g/dL (12.0-15.0); Lymphocyte % 22.4 % (19-41); Mean Corp Hgb Conc 33.3 g/dL (32-36); Mean Corpuscular Hgb 27.7 pg (27.0-32.0); Mean Corpuscular Volume 83.2 fL (81-99); Mean Platelet Vol. 10.5 fl (6.2-12.0); Monocyte# 0.71 X10^3/uL; Monocyte% 6.4 % (0-10); NRBC Flagged by Analyzer 0 % (0-5); Neutrophil # 7.81 X10^3/uL (2.7-7.7); Neutrophil % 69.8 % (47-70); Platelet Count 275 K/mm3 (150-450); RBC Distribution Width CV 13.6 % (11.6-14.6); RBC Distribution Width SD 41.2 fl (35.1-43.9); Red Blood Count 4.22 M/mm3 (4.2-5.4); White Blood Count 11.2 K/mm3 (4.4-11.0)
[2024-05-06] MEDS: miSOPROStol 25 MCG TABLET VAGINAL (20:11)
[2024-05-06 21:08] LABS: Syphilis Antibodies Non-reactive
[2024-05-06 21:32] LABS: Bedside Glucose 81 mg/dL (74-106)
[2024-05-07] VITALS (38 sets, daily range): BP systolic 128–180; BP diastolic 60–113; PULSE 68–95; RESP 16–18; TEMP 36.1–37; O2SAT 97–98
[2024-05-07] MEDS: miSOPROStol 25 MCG TABLET VAGINAL ×2 (00:17→04:19)
[2024-05-07 00:41] LABS: Bedside Glucose 85 mg/dL (74-106)
--- NOTE | 2024-05-07 05:43 | HP.PCM.OB_ITS ---
HPI - General General Date of Admission: 05/06/24 HPI Narrative JUANITA LANGE, is a 34 F who presents for IOL secondary to gHTN. no vb lof admits good fm no regular ctx Maternal Data Information LISE Calculator Estimated Delivery Date Method Current WG Current Estimate 05/23/24 LMP (Certain) 37w 5d PFSH PFSH Medical History (Updated 05/07/24 @ 05:[address] Nevin Andrews MD) Seasonal allergies Acute sinusitis, unspecified H/O cold sores Home Medications ?Medication ?Instructions ?Recorded ?Last Taken ?Type diphenhydramine HCl 50 mg capsule 50 mg PO QHS 10/18/23 Unknown History (Unisom SleepGels) doxylamine succinate 25 mg tablet 25 mg PO ONCE PRN sleep 10/18/23 05/05/24 22:00 History (Unisom (doxylamine)) 25 mg multivit-min no.71-iron fum 28 2 cap PO .daily 10/18/23 05/05/24 22:00 History mg-folate no.1 1 mg-dha 300 mg 2 caps capsule (PNV-[place]) pyridoxine (vitamin B6) 25 mg 25 mg PO DAILY 10/18/23 05/05/24 22:00 History tablet 25 mg docusate sodium 100 mg capsule 100 mg PO DAILY PRN constipation 10/21/23 05/05/24 22:00 History (Colace) 100 mg ondansetron HCl 4 mg tablet 4 mg PO Q8H #90 tabs 10/21/23 Unknown Rx blood sugar diagnostic (Blood #120 ea 02/24/24 Unknown Rx Glucose Test strips) blood-glucose meter #1 ea 02/24/24 Unknown Rx lancets #200 ea 02/24/24 Unknown Rx Allergy/AdvReac Type Severity Reaction Status Date / Time metronidazole (From Flagyl) Allergy Hives Verified 05/06/24 14:24 Family History Father Hypertension Cancer bladder Pulmonary embolism MYAH (obstructive sleep apnea) Multiple sclerosis Mother Hypertension [place] esophagus MYAH (obstructive sleep apnea) Grandmother Diabetes Hypertension Cancer small cell lung cancer Grandfather Hypertension Heart disease Myocardial infarction Cancer skin Surgical History History of arthroscopy of left shoulder S/P appendectomy History of wisdom tooth extraction, class II edentulism closed fixation and pinning of elbow Social History adopted: No household members: spouse and children housing: house number of children: 3 current occupational status: employed 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- [employer] current occupational exposures/hazards: No pets and animals: Yes pets and animals: dog(s) history of recent travel: No sexually active: Yes Smoking Status: Never smoker alcohol intake: never substance use type: does not use well-balanced diet: daily or most days caffeine: Yes Type: coffee Number of servings: 1 eating out: 1-3 times/week during the past year weight has: remained stable what type of physical activity do you participate in: walking frequency: 1-2 times per week duration: 15-30 minutes/day kiarra/latter day: Tenriism seatbelt use: always do you feel safe at home: Yes 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 Date Name GA/Weeks Outcome Route Bth Weight Gen Labor Lgth Anesthesia Del Locatn Provider FOB 12/28/11 Eleanor 39 live - full term 9 llb 7 ounces M edmar 8 hours epidural [facility] [place] 07/20/18 Bronson 37 live - full term 6.8 Female epi dural [facility] 02/29/20 [place] 38 live - full term 7lbs 13oz Male e pidural [facility] [place] Delivery Date: 12/28/11 Last Updated by: Sonia Uribe polyhydramnios Delivery Date: 07/20/18 Last Updated by: Sonia Uribe Preeclampsia Delivery Date: 02/29/20 Last Updated by: Sonia Uribe Breech ECV to vertx; IOL GHTN; 1st degree laceration Visit Details Expected Delivery Route/Plan Labor Preferences- CB/BF classes: [] labor support person: [] labor intervention preferences: [] pain management options preferred: [] cut cord/dad catch: [] : [] PP control planned: [] discussed possible routes of delivery and associated risks: [] special requests: [] Plans Covid status: [] Flu vaccine: [] Tdap vaccine: [] Rhogam: [] LARC form signed: [] Problem list reviewed and updated with the most current plan of care details and appropriate orders placed. Relevant counseling for the gestational age provided. Continue routine care and follow up unless otherwise noted in visit notes/problem list details OB Flowsheet Initial Weight: Not Recorded Date -?-?-?-?-?-?-?-?-?-?-?-?- EGA Weight BP Urine Prot -?-?-?-?-?-?-?-?-?-?-?-?- Glucose FHR FuHt Pres Dilation -?-?-?-?-?-?-?-?-?-?-?-?- Effaced St Visit Note 10/21/23 -?-?-?-?-?-?-?-?-?-?-?-?- 9w 2d 309 lb 6 oz 148/82 -?-?-?-?-?-?-?-?-?-?-?-?- 160 -?-?-?-?-?-?-?-?-?-?-?-?- Sm- CRL 2cm cons with lmp 11/05/23 -?-?-?-?-?-?-?-?-?-?-?-?- 11w 3d 309 lb 149/89 Negative -?-?-?-?-?-?-?-?-?-?-?-?- Negative 150 -?-?-?-?-?-?-?-?-?-?-?-?- Sm- no vb crampi ng 12/05/23 -?-?--?-?-?-?-?-?-?-?-?-?- 15w 5d 308 lb 8 oz 131/83 Nega tive -?-?-?-?-?-?-?-?-?-?-?-?- Negative 152 -?-?-?-?-?-?-?-?-?-?-?-?- JV- no complaint s today. has anatomy scan with MFM scheduled 12/30. 01/01/24 -?-?-?-?-?-?-?-?-?-?-?-?- 19w 4d 316 lb 129/75 Negative -?-?-?-?-?-?-?-?-?-?-?-?- Negative 140 -?-?-?-?-?-?-?-?-?-?-?-?- JV- no complaint s. does not want monthly growth scans but agrees to do scans at 28 and 36 weeks. 01/31/24 -?-?-?-?-?-?-?-?-?-?-?-?- 23w 6d 322 lb 128/84 -?-?-?-?-?-?-?-?-?-?-?-?- 140 -?-?-?-?-?-?-?-?-?-?-?-?- SM- no vb lof go od fm no regular ctx 02/24/24 -?-?-?-?-?-?-?-?-?-?-?-?- 27w 2d 327 lb 138/85 Negative -?-?-?-?-?-?-?-?-?-?-?-?- Negative 145 -?-?-?-?-?-?-?-?-?-?-?-?- JV- pt failed he r 1 hr. wants to try glucose monitoring for a week first. Planning growth scans at 28 wend 36 weeks. hoping to be delivered 37 weeks. (we talked about this due to hypertension) 03/16/24 -?-?-?-?-?-?-?-?-?-?-?-?- 30w 2d 328 lb 130/72 -?-?-?-?-?-?-?-?-?-?-?-?- 140 -?-?-?-?-?-?-?-?-?-?-?-?- JV- 4 x a day gl ucose log normal. ok to go to fasting and 2 hr pp at dinner only. continue growth scans then weekly nsts starting 34 weeks. 03/31/24 -?-?-?-?-?-?-?-?-?-?-?-?- 32w 3d 327 lb 134/86 Negative -?-?-?-?-?-?-?-?-?-?-?-?- Negative 157 37 -?-?-?-?-?-?-?-?-?-?-?-?- JV- fasting leve ls all below 95, 2 hrr pp dinners all below 100. JV- fasting levels all below 95, 2 hrr pp dinners all below 100. h/o poly last of 32 cm and is now 19 cm. will repeat ultrasound this week or next. 04/14/24 -?-?-?-?-?-?-?-?-?-?-?-?- 34w 3d 327 lb 2 oz 136/84 Nega tive -?-?-?-?-?-?-?-?-?-?-?-?- Negative 140 -?-?-?-?-?-?-?-?-?-?-?-?- MH-NST only reac tive. Glucose readings scanned. FBS all <95. 2 hr all<100 04/20/24 -?-?-?-?-?-?-?-?-?-?-?-?- 35w 2d 326 lb 128/83 Negative -?-?-?-?-?-?-?-?-?-?-?-?- Negative 140 41 -?-?-?-?-?-?-?-?-?-?-?-?- JV- NST reactive . feels lots of pressure and wants to be checked. Has rpt ultrasound next week. 04/27/24 -?-?-?-?-?-?-?-?-?-?-?-?- 36w 2d 327 lb 8 oz 128/85 Nega tive -?-?-?-?-?-?-?-?-?-?-?-?- Negative 130 -?-?-?-?-?-?-?-?-?-?-?-?- JV- growth today shows baby is 8.5 pounds (verbal report) glucose log still WNL, however suspect her 1 hour could be higher. planning 38 week IOL. GBS collected. NST FHR Rate Baby A Baseline: 130 Variability:: Moderate Accelerations:: 15 x 15 Decelerations:: None NST Reactive:: Yes FHR Category:: Category I Uterine Activity:: irregular ROS Constitutional Constitutional: Reports systems reviewed and no addt'l complaints, except as documented Eyes Eyes: Denies change in vision ENT HEENT: Reports systems reviewed and no addt'l complaints, except as documented; Denies headache(s) Cardiovascular Cardiovascular: Reports systems reviewed and no addt'l complaints, except as documented; Denies chest pain or dyspnea Respiratory/Chest Respiratory/Chest: Reports systems reviewed and no addt'l complaints, except as documented Gastrointestinal Gastrointestinal: Reports systems reviewed and no addt'l complaints, except as documented; Denies abdominal pain Genitourinary Genitourinary: Reports systems reviewed and no addt'l complaints, except as documented, contractions Details: present (irregular) and movement Details: present; Denies dysuria or genital lesions Musculoskeletal Musculoskeletal: Reports systems reviewed and no addt'l complaints, except as documented Neurologic Neurologic: Reports systems reviewed and no addt'l complaints, except as documented Endocrine Endocrinology: Reports systems reviewed and no addt'l complaints, except as documented Vital Signs Vital Signs Vital Signs: 05/06/24 20:04 05/06/24 20:04 05/06/24 20:05 Temperature Temperature Source Temporal Pulse Rate 88 Respiratory Rate Blood Pressure 137/78 H BP Systolic 137 BP Diastolic 78 Pulse Ox 05/06/24 20:05 05/06/24 20:05 05/07/24 00:11 Temperature 98.0 F Temperature Source Temporal Pulse Rate Respiratory Rate 16 Blood Pressure BP Systolic BP Diastolic Pulse Ox 05/07/24 00:11 05/07/24 00:11 05/07/24 00:11 Temperature Temperature Source Pulse Rate 84 Respiratory Rate 16 Blood Pressure BP Systolic BP Diastolic Pulse Ox 98 05/07/24 00:11 05/07/24 00:13 05/07/24 00:13 Temperature 97.2 F L Temperature Source Pulse Rate 82 Respiratory Rate Blood Pressure 154/81 H BP Systolic 154 BP Diastolic 81 Pulse Ox 05/07/24 04:14 05/07/24 04:14 05/07/24 04:14 Temperature 98.5 F Temperature Source Temporal Pulse Rate Respiratory Rate 16 Blood Pressure BP Systolic BP Diastolic Pulse Ox 05/07/24 04:15 05/07/24 04:15 Temperature Temperature Source Pulse Rate 72 Respiratory Rate Blood Pressure 149/90 H BP Systolic 149 BP Diastolic 90 Pulse Ox Weight Weight: 329 lb 9.457 oz Body Mass Index (BMI) 50.1 Physical Exam Const alert, oriented x3, no apparent distress and healthy appearing HEENT normocephalic and moist oral mucous membranes Head and Scalp: atraumatic Neck full ROM, no lymphadenopathy, supple and thyroid normal General: trachea midline Lymph Lymphatic: no lymphadenopathy noted Chest inspection of chest normal Resp normal respiratory effort Cardio regular rate GI normal to inspection, nondistended, normoactive bowel sounds, soft to palpation and non-tender Inspection: gravid external exam normal Manual OB Exam: estimated gestational size appropriate, presentation cephalic, dilated, effaced and station Extremity normal to inspection General Extremity: Negative for edema Skin no rashes or lesions noted Neuro no focal motor deficits and deep tendon reflexes 2+ bilaterally Motor Exam: strength 5/5 throughout and clonus absent Psych mental status grossly normal Labs Labs Labs: Blood Type O POSITIVE Antibody Screen NEGATIVE Hct 35.1 % (37-47) L Hgb 11.7 g/dL (12.0-15.0) L Obstetrics Ultrasound Syphilis Total Ab Non-reactive [place] IgG Antibody Reactive (Nonreactive) Hep Bs Antigen Non-Reactive (Nonreactive) Hepatitis C Antibody Non-Reactive (Nonreactive) Chlamydia DNA (LILIYA) Negative (Negative) N.gonorrhoeae DNA (LILIYA) Negative (Negative) HIV 1&2 Antibody Non-Reactive (Nonreactive) Glucose 1 Hr 50 gm 166 mg/dL (70-140) H Gest Glucose Tolerance MG/DL Group B Strep DNA POSITIVE (Negative) H Rhogam given: No Assessment & Plan (1) Gestational hypertension: (2) Supervision of high-risk : QUALIFIERS: Trimester: third trimester Qualified Code(s): O09.93 - Supervision of high risk , unspecified, third trimester COMMENT: PRR , LISE 05/23/24, [place] Joe Kenton [place] (3) : QUALIFIERS: Weeks of gestation: 37 weeks Qualified Code(s): Z3A.37 - 37 weeks gestation of COMMENT: DOC ONLY. discussed genetic & carrier testing- declines (4) History of gestational hypertension: COMMENT: baseline labs reveiwed. baby asa recommended at 14 weeks (5) Obesity affecting : QUALIFIERS: Trimester: third trimester Obesity type affecting : unspecified obesity Qualified Code(s): O99.213 - Obesity complicating , third trimester COMMENT: 1 TM HgA1C(5.2) and healthy weight gain recommended mfm wants monthly growth scans but patient prefers just 28 and 36 weeks nsts weekly starting 34 weeks. (6) Abnormal glucose affecting : COMMENT: declines 3hr GTT due to symptoms of bottoming out and - plan to check fasting and 2 hr pp dinner levels. did 4 times a day testing for a week and was normal. consider 39 week IOL due to traveling and LGA. (7) Encounter for induction of labor: PLAN: Plan Patient presents IOL, plan management for with cytotec and then plan pitocin/AROM. Pain management: plans epidural. GBS negative. Management of any complications: labs WNL today I have reviewed the [facility] and made any clinically relevant updates.
[2024-05-07 05:51] LABS: Bedside Glucose 75 mg/dL (74-106)
--- NOTE | 2024-05-07 07:31 | PCM.PN.BLA ---
Progress Note pt states that she has felt mild contractions all night. Her last dose of cytotec was 3 hours ago. current tracing: FHT: 140's Moderate variability reactive no decelerations category I tracing [place]: some coupling Contractions, uterine irritability currently. cx: /-2 membranes ruptured with scant clear fluid return. A/P: GHTn, abnormal glucose affecting , obesity, and suspected macrosomia plan to start pitocin as needed epidural prn.
[2024-05-07] MEDS: Lactated Ringers 1,000 ML 999 ML IV (08:55)
[2024-05-07] MEDS: fentaNYL-bupivacaine (epidural) 100 ML BAG EPIDURAL (09:43)
[2024-05-07] MEDS: Lactated Ringers 1,000 ML 200 ML IV (09:44)
[2024-05-07 10:08] LABS: Bedside Glucose 109 mg/dL (74-106)
[2024-05-07] MEDS: Oxytocin 15 Units/NS 250ml 15 UNITS/250 ML IV.SOLN 2 UNITS IV (10:11)
--- NOTE | 2024-05-07 12:34 | EX.PCM.OBRPT ---
Assessment & Plan (1) Encounter for induction of labor: (2) Gestational hypertension: (3) Obesity affecting : QUALIFIERS: Trimester: third trimester Obesity type affecting : unspecified obesity Qualified Code(s): O99.213 - Obesity complicating , third trimester COMMENT: 1 TM HgA1C(5.2) and healthy weight gain recommended mfm wants monthly growth scans but patient prefers just 28 and 36 weeks nsts weekly starting 34 weeks. (4) History of gestational hypertension: COMMENT: baseline labs reveiwed. baby asa recommended at 14 weeks (5) Supervision of high-risk : QUALIFIERS: Trimester: third trimester Qualified Code(s): O09.93 - Supervision of high risk , unspecified, third trimester COMMENT: PRR , LISE 05/23/24, [place] Joe Kenton [place] (6) : QUALIFIERS: Weeks of gestation: 37 weeks Qualified Code(s): Z3A.37 - 37 weeks gestation of COMMENT: DOC ONLY. discussed genetic & carrier testing- declines (7) Abnormal glucose affecting : COMMENT: declines 3hr GTT due to symptoms of bottoming out and - plan to check fasting and 2 hr pp dinner levels. did 4 times a day testing for a week and was normal. consider 39 week IOL due to traveling and LGA. Maternal Data Information LISE Calculator Estimated Delivery Date Method Current WG Current Estimate 05/23/24 LMP (Certain) 37w 5d Vaginal Delivery Maternal Presentation Maternal Presentation: Medically Indicated Induction Type of Induction: Pitocin, Amniotomy and Cytotec Operative Information Date of Procedure: 05/07/24 Pre-Operative Diagnosis: gestational hypertension, 37 weeks 5 days Post-Operative Diagnosis: gestational hypertension, 37 weeks 5 days Surgery / Procedure Performed: Spontaneous Vaginal Delivery Type of Anesthesia: Epidural Drain: Rodriguez to straight drain Estimated Blood Loss: 50cc Time of Delivery: 12:17 Findings Description of Procedure: Patient began pushing and delivered the head in the PIYUSH presentation. The head was delivered atraumatically. The anterior and posterior shoulders delivered without complication followed by the rest of the and the infant was placed on the maternal abdomen. Delayed cord clamping was employed for approximately 60 seconds. Cord was clamped and cut and gentle traction was applied to the cord and the placenta delivered spontaneously immediately following it was noted to be intact with three-vessel cord. The perineum and vagina were inspected and noted to have a very small 1st degree tear. This was repaired using a 3-0 vicryl. EBL was 50cc cc. Patient and tolerated delivery well. Presentation: Vertex Amniotic Membrane Rupture Type: Spontaneous Amniotic Fluid Description: Clear Placental Delivery Description: Spontaneous Placenta Disposition: [facility] Cord Vessel Description: 3 Vessels Cord Entanglement: None A Gender: Male (1 minute): 9 (5 minute): 9 Delayed Cord Clamping: Yes Post Vaginal Delivery Medications Given After Delivery: IV Pitocin Episiotomy Description: None Laceration: 1st degree Complication Complications: None Multi Select Codes Urinary/Genital Urinary/Genital CPT Codes: 32005 Vaginal Delivery [facility]
--- NOTE | 2024-05-07 12:36 | DCINST_ITS ---
Discharge Instructions Diet Discharge Diet: No restrictions Activity Discharge Activity: Return to Normal Activity, May Not Drive (while taking narcotic pain medications.) and May Shower May resume sexual activity in: 4-6 weeks Dressing / Incision Call your doctor if your incision/area has: Continuous Slow Oozing, Sudden Increased Bleeding, Increased Pain/ Swelling, Increased Redness and Foul Smelling Discharge Follow Up Care Please Follow Up With: Elen Cuello, When: Call [phone] to make an appointment with your doctor in 6 weeks. If you had elevated blood pressure or 4th degree laceration, you will need to be seen in 2 weeks. Test Results: Test results from this visit will be discussed in further detail at your follow- up appointment, if applicable. Discharge Plan Admission Admit Date/Time: 05/06/24 19:15 Attending Provider: Elen Cuello Primary Care Provider: Vinod Physician,Guerline Primary Discharge Orders/Prescriptions Prescriptions: No Action diphenhydramine HCl [Unisom SleepGels] 50 mg capsule 50 mg PO QHS pyridoxine (vitamin B6) 25 mg tablet 25 mg PO DAILY Unisom (doxylamine) 25 mg tablet 25 mg PO ONCE PRN (Reason: sleep) PNV-[place] 28-1-300 mg capsule 2 cap PO .daily docusate sodium [Colace] 100 mg capsule 100 mg PO DAILY PRN (Reason: constipation) (DME) blood-glucose meter Misc See Rx Instructions .MEDSUPPLY Qty: 1 0RF Rx Instructions: As directed- Test fasting and 2 hours after meals (DME) Blood Glucose Test Strip See Rx Instructions .MEDSUPPLY Qty: 120 5RF Rx Instructions: As directed-fasting & 2 hr post meals (DME) lancets Misc See Rx Instructions .MEDSUPPLY Qty: 200 5RF Rx Instructions: As directed-fasting & 2 hr post meals ondansetron HCl 4 mg tablet 4 mg PO Q8H Qty: 90 2RF Referrals / Follow Up: Care Physician,No Primary [Primary Care Provider] -
[2024-05-07] MEDS: Oxytocin 15 Units/NS 250ml 15 UNITS/250 ML IV.SOLN 83 UNITS IV (12:49)
[2024-05-07] MEDS: Ibuprofen 600 MG Tablet PO (22:26)
[2024-05-08] VITALS (13 sets, daily range): BP systolic 142–160; BP diastolic 79–96; PULSE 78–94; RESP 16–18; TEMP 36.2–36.4; O2SAT 87–100
--- NOTE | 2024-05-08 09:40 | PN.OBGYN_ITS ---
Subjective Subjective Patient doing well without complaints. Tolerating PO. Ambulating and voiding without difficulty. Feeding well. Denies chest pain, shortness of breath, calf pain/swelling, fevers, chills, lightheadedness. Objective Data Objective Data Vital Signs: Vital Signs Temp Pulse Resp BP Pulse Ox O2 Del Method 97.5 F L 78 16 146/79 H 99 Room Air 05/08/24 08:52 05/08/24 08:56 05/08/24 08:52 05/08/24 08:55 05/08/24 08:56 05/08/24 08:52 Oxygen Delivery Method Room Air Weight: 329 lb 9.457 oz Body Mass Index (BMI) 50.1 Intake & Output: Intake and Output for Last 24 Hours 05/06/24 05/07/24 05/08/24 23:59 23:59 23:59 Intake Total 2638.4 / 2638.4 Output Total 1050 / 1050 Balance 1588.4 / 1588.4 Lab / Micro Data 05/06/24 19:50 Labs: Laboratory Results - last 24 hr 05/07/24 09:22: POC Glucose 109 H ROS Constitutional Constitutional: Denies chills, fatigue, fever(s), poor appetite or weakness Eyes Eyes: Denies blurry vision, change in vision, seeing flashes or spots in vision ENT HEENT: Denies dizziness, headache(s), loss taste/smell or sore throat Cardiovascular Cardiovascular: Denies chest pain, dizziness, dyspnea, irregular heart rhythm, palpitations or rapid heart rate Respiratory/Chest Respiratory/Chest: Denies chest tightness, cough, dyspnea or breast pain Gastrointestinal Gastrointestinal: Denies abdominal pain, constipation or vomiting Genitourinary Genitourinary: Denies dysuria or flank pain Musculoskeletal Musculoskeletal: Denies difficulty walking, joint pain, limited range of motion or numbness Neurologic Neurologic: Denies abnormal movements, abnormal speech, dizziness, numbness, seizure-like activity or syncope Psychiatric Psychiatric: Denies anxiety, behavioral changes, change in appetite, confusion, depression or suicidal thoughts Physical Exam Const alert, oriented x3 and no apparent distress General Appearance: cooperative and comfortable Resp normal respiratory effort Cardio regular rate GI normal to inspection, nondistended, normoactive bowel sounds GI Narrative: uterus is firm below umbilicus Palpation: soft Back/Spine no CVA tenderness and thoraco-lumbar ROM normal Extremity normal to inspection, no clubbing, cyanosis or edema, no calf tenderness and no pedal edema Psych mental status grossly normal, thought process normal, cooperative, affect normal, speech normal, activity/motor behavior normal, denies homicidal ideation and denies suicidal ideation Assessment & Plan (1) Gestational hypertension: (2) Obesity affecting : QUALIFIERS: Trimester: third trimester Obesity type affecting : unspecified obesity Qualified Code(s): O99.213 - Obesity complicating , third trimester COMMENT: 1 TM HgA1C(5.2) and healthy weight gain recommended mfm wants monthly growth scans but patient prefers just 28 and 36 weeks nsts weekly starting 34 weeks. (3) History of gestational hypertension: COMMENT: baseline labs reveiwed. baby asa recommended at 14 weeks (4) Supervision of high-risk : QUALIFIERS: Trimester: third trimester Qualified Code(s): O09.93 - Supervision of high risk , unspecified, third trimester COMMENT: PRR , LISE 05/23/24, [place] Joe Kenton Calvin (5) : QUALIFIERS: Weeks of gestation: 37 weeks Qualified Code(s): Z 3A.37 - 37 weeks gestation of COMMENT: DOC ONLY. discussed genetic & carrier testing- declines (6) Abnormal glucose affecting : COMMENT: declines 3hr GTT due to symptoms of bottoming out and - plan to check fasting and 2 hr pp dinner levels. did 4 times a day testing for a week and was normal. consider 39 week IOL due to traveling and LGA. (7) Encounter for induction of labor: PLAN: Plan sending home on low dose labetalol - follow up in 1 week in office
[2024-05-08] MEDS: Labetalol 200 MG Tablet PO (10:29)
--- NOTE | 2024-05-13 14:34 | NURSING ---
Follow up phone call made, no answer, left voicemail
== END 2024-05-08 15:15 | disposition home or self-care (01) | DRG 807 ==
PROVIDERS: Admitting Provider Obstetrics & Gynecology; Visit Provider Obstetrics & Gynecology
DX: O13.4 Gestational [pregnancy-induced] hypertension without significant proteinuria, complicating childbirth (principal); Z37.0 Single live birth; O70.0 First degree perineal laceration during delivery; O99.214 Obesity complicating childbirth; Z3A.37 37 weeks gestation of pregnancy; Z79.899 Other long term (current) drug therapy
CPT/HCPCS: 59025; 59050; 82962; 85025; 86780; 86850; 86900; 86901; 99221; J7120; G0378

== ENCOUNTER → 2024-05-06 | Outpatient (CLI) | payer OTHER, SELFPAY ==
[2024-05-06 15:56] LABS: ALB/GLOB Ratio 0.7 RATIO (0.9-2.4); AST(SGOT) 18 U/L (15-37); Alanine Aminotransfer ALT/SGPT 24 U/L (13-56); Alkaline Phosphatase 120 U/L (45-117); Anion Gap 9 (5-15); BUN 10 mg/dL (7-18); BUN/Creat Ratio 16.9 RATIO (10-20); Chloride 106 mmol/L (98-107); Creatinine, Serum 0.59 mg/dL (0.55-1.02); EST Glomerular Filtration Rate 124 mL/min (>60); Est Glom Filt Rate - Afr Amer 150 mL/min (>60); Globulin 4.6 g/dL (2.2-4.2); Glucose 75 mg/dL (74-106); Potassium 3.6 mmol/L (3.5-5.1); Protein, Total 7.6 g/dL (6.4-8.2); Sodium Level 136 mmol/L (136-145)
[2024-05-06 15:58] LABS: Creatinine, Urine (random) < 13.00 mg/dL (NO RANGE EST.); Protein, Urine (Random) 10.4 mg/dL (<11.9)
[2024-05-06 16:02] LABS: Absolute Lymphocyte Count 2.87 X10^3/uL (0.83-4.51); Absolute Neutrophil Count 7.5 X10^3/uL (2.0-7.7); Basophil# 0.04 X10^3/uL; Basophil% 0.4 % (0-1); Eosinophil# 0.07 X10^3/uL; Eosinophils% 0.6 % (0-5); Hematocrit 37.7 % (37-47); Hemoglobin 12.5 g/dL (12.0-15.0); Lymphocyte # 2.87 X10^3/ul (0.83-4.51); Lymphocyte % 25.2 % (19-41); Mean Corp Hgb Conc 33.2 g/dL (32-36); Mean Corpuscular Volume 84.5 fL (81-99); Mean Platelet Vol. 10.8 fl (6.2-12.0); NRBC Flagged by Analyzer 0 % (0-5); Neutrophil # 7.54 X10^3/uL (2.7-7.7); Neutrophil % 66.1 % (47-70); Platelet Count 285 K/mm3 (150-450); RBC Distribution Width CV 13.8 % (11.6-14.6); RBC Distribution Width SD 42.4 fl (35.1-43.9); Red Blood Count 4.46 M/mm3 (4.2-5.4); White Blood Count 11.4 K/mm3 (4.4-11.0)
== END | disposition home or self-care (01) ==
PROVIDERS: Referring Provider Obstetrics & Gynecology; Visit Provider Obstetrics & Gynecology
DX: Z87.59 Personal history of other complications of pregnancy, childbirth and the puerperium (principal)
CPT/HCPCS: 36415; 80053; 82570; 84156; 85025

== ENCOUNTER → 2024-06-16 | Outpatient (CLI) | payer OTHER, SELFPAY ==
[2024-06-19 14:09] LABS: HPV APTIMA, High Risk Negative (Negative)
== END | disposition home or self-care (01) ==
LOC: LABSPEC 14:38
PROVIDERS: Referring Provider Advanced Practice Midwife; Visit Provider Advanced Practice Midwife
DX: Z12.4 Encounter for screening for malignant neoplasm of cervix (principal)
CPT/HCPCS: 87624; 88175; G0145